=== PATIENT | female | born 1940 | race Caucasian/White ===

== ENCOUNTER → 2016-09-29 | Outpatient (CLI) | payer MEDICARE, OTHER | END | disposition home or self-care (01) | LOC: GMAB 10:20 | PROVIDERS: ATTEND Family Medicine | DX: D51.3 Other dietary vitamin B12 deficiency anemia (principal); I10 Essential (primary) hypertension; D64.9 Anemia, unspecified ==

== ENCOUNTER → 2016-10-02 | Outpatient (CLI) | payer MEDICARE, OTHER ==
--- NOTE | 2016-10-03 14:27 | MRI ---
Procedure: MR BRAIN WITHOUT IV CONTRAST Exam Date: 10/02/2016 Ordering Provider: SAMEER MARQUEZ Clinical Indication: DEMENTIA Comparison: None Technique: Multiplanar MRI of the brain was obtained without the administration of IV contrast. Findings: Mild cerebral and cerebellar volume loss There is no midline shift or hydrocephalus. There is normal signal within the cortical guevara matter, subcortical white matter, and periventricular white matter. There is normal signal within the deep guevara matter nuclei. There is normal signal in the cerebellum. There is normal signal within the brainstem. There is no evidence of an acute infarct. There is no parenchymal hemorrhage. The pituitary gland is normal in size. There are no pineal masses. There are normal intracranial vascular flow voids. The craniocervical junction is unremarkable. Mucosal thickening in the right maxillary sinus. Paranasal sinuses are otherwise unremarkable The orbits are intact. IMPRESSION: 1. No acute intracranial abnormality demonstrated. 2. Mild cerebral and cerebellar volume loss. Electronically signed by: Jorge Moura MD 10/03/2016 2:26 PM CDT
== END | disposition home or self-care (01) ==
LOC: MRI 12:52
PROVIDERS: ATTEND Family Medicine
DX: F03.90 Unspecified dementia, unspecified severity, without behavioral disturbance, psychotic disturbance, mood disturbance, and anxiety (principal); D64.9 Anemia, unspecified

== ENCOUNTER → 2016-11-26 | Outpatient (CLI) | payer MEDICARE, OTHER ==
--- NOTE | 2016-11-30 13:49 | MAM ---
EXAM DESCRIPTION: 3D Screening BILATERAL CLINICAL HISTORY: 76 years, Female, Screening mammogram COMPARISON: None TECHNIQUE: CC and MLO digital mammograms with 3-D tomosynthesis. No CAD utilized. FINDINGS: There are scattered fibroglandular densities. There is no dominant mass nor any suspicious microcalcifications. Benign microcalcifications are present. IMPRESSION: BIRAD CATEGORY: 2 BENIGN FOLLOW-UP: Routine mammography screening. Electronically signed by: Americo Thibodeaux MD 11/30/2016 1:48 PM CDT
== END ==
LOC: MAMMO 10:00
PROVIDERS: ATTEND Family Medicine
DX: Z12.31 Encounter for screening mammogram for malignant neoplasm of breast (principal)
CPT/HCPCS: 77063; G0202

== ENCOUNTER → 2016-12-08 | Outpatient (CLI) | payer MEDICARE, OTHER ==
--- NOTE | 2016-12-08 18:48 | US ---
EXAM DESCRIPTION: Carotid Duplex CLINICAL HISTORY: CAROTID ARTERY STENOSIS COMPARISON: None Available. TECHNIQUE: Carotid Doppler ultrasound FINDINGS: Atherosclerotic plaque is observed in both carotid arteries. No acceleration flow is observed to suggest a significant stenosis. Antegrade flow seen in both vertebral arteries. IMPRESSION: No hemodynamically significant stenosis is identified. Electronically signed by: Cullen Mason MD 12/08/2016 6:46 PM CDT
--- NOTE | 2016-12-09 08:41 | US ---
THYROID ULTRASOUND Clinical information: History of thyroid nodules Patient risk factors: Prior thyroid ultrasound: December 20, 2013 Prior biopsy: No FINDINGS Size right lobe: 4.3 cm craniocaudal, 1.3 cm transverse, 2.3 cm anterior-posterior Size left lobe: 4.7 cm craniocaudal, 1.1 cm transverse, 1.1 cm anterior-posterior Size isthmus: 0.2 cm anterior-posterior. Texture: Estimated total number of nodules greater than or equal to 1 cm: 2 Number of spongiform nodules greater than or equal to 2 cm not described below (TR1): 0 Number of mixed cystic nodules greater than or equal to 1.5 cm not described below (TR2): 0 Nodule 1: Size: 1.2 x 0.7 x 0.9 cm Location: right mid Composition: solid/almost completely solid (2) Echogenicity: isoechoic (1) Shape: not [id number] (0) Margins: smooth (0) Echogenic foci: none (0) ACR TI-RADS total points: 3. ACR TI-RADS risk category: TR3 Follow-up details: Prior biopsy: No Significant growth: None Change in features: None Change in ACR TI-RADS risk category: None Nodule 2: Size: 1.3 x 1.4 x 1.0 cm Location: right lower Composition: mixed cystic and solid (1) Echogenicity: hypoechoic (2) Shape: not [id number] (0) Margins: smooth (0) Echogenic foci: none (0) ACR TI-RADS total points: 3. ACR TI-RADS risk category: TR3 Follow-up details: Prior biopsy: None Significant growth: None Change in features: None Change in ACR TI-RADS risk category: None Smaller less than 1 cm thyroid nodules are seen in the right and left lobes overall unchanged in size and imaging characteristics compared to previous exam. IMPRESSION: Nodule 1: ACR TI-RADS 2017 3. Recommend: No further follow-up Nodule 2: ACR TI-RADS 2017 3. Recommend: No further follow-up Overall ultrasound of the thyroid is unchanged from previous exam. ACR TI-RADS recommendations: TR5 (greater than or equal to 7 points) - FNA if greater than or equal to 1 cm, follow-up if 0.5 - 0.9 cm every year for 5 years TR4 (4-6 points) - FNA if greater than or equal to 1.5 cm, follow-up if 1 - 1.4 cm in 1, 2, 3 and 5 years TR3 (3 points) - FNA if greater than or equal to 2.5 cm, follow -up if 1.5 - 2.4 cm in 1, 3 and 5 years TR2 (2 points) and TR1 (0 points) - No FNA or follow-up * ACR TI-RADS recommends that no more than two nodules with the highest ACR TI-RADS total point should be biopsied and no more than four nodules should be followed. . Electronically signed by: Kota Louis MD 12/09/2016 8:40 AM CDT
== END | disposition home or self-care (01) ==
LOC: US 09:09
PROVIDERS: ATTEND Family Medicine
DX: I65.23 Occlusion and stenosis of bilateral carotid arteries (principal); E04.1 Nontoxic single thyroid nodule

== ENCOUNTER → 2017-04-01 | Outpatient (CLI) | payer MEDICARE, OTHER ==
--- NOTE | 2017-04-02 16:00 | MRI ---
EXAM DESCRIPTION: Cervical Spine w/wo Contrast CLINICAL HISTORY: 76 years,Female,ABN PET SCAN I have no PET scan and I have no report so therefore I do not know what we are looking for on this study. COMPARISON: None TECHNIQUE: MRI performed multiple sequences of the cervical spine with and without gadolinium contrast. FINDINGS: The signal in the cervical vertebral bodies demonstrates no acute findings No enhancing lesions. The cervical cord is normal signal and morphology. No enhancing lesions. Surrounding soft tissues Dense and arch of C1: Moderate hypertrophy and small past formation but no stenosis C2-3: Disc heights mild loss. There is no disc bulge. Facets are moderate bilateral hypertrophy. No spinal canal stenosis. No neural foraminal stenosis. C3-4: Disc heights mild to moderate loss. There is mild broad-based disc ossify complex. Facets are moderate bilateral facet hypertrophy. No spinal canal stenosis. Moderate to severe left and mild right neural foraminal stenosis. C4-5: Disc heights mild loss. There is mild broad-based disc ossify complex. Facets are moderate to severe hypertrophy bilaterally. No spinal canal stenosis. Moderate left mild right neural foraminal stenosis. C5-6: Disc heights mild loss. There is mild broad-based disc ossify complex. Facets are markedly severely left and moderate right facet hypertrophy. No spinal canal stenosis. Moderate to severe left mild right neural foraminal stenosis. C6-7: Disc heights moderate loss . There is mild to moderate broad-based disc ossify complex. Facets are moderate bilateral hypertrophy. No spinal canal stenosis. Mild bilateral neural foraminal stenosis to moderate. No enhancing lesions IMPRESSION: Cervical spine demonstrates moderate to severe facet arthropathy throughout. And mostly mild to moderate disc ossify complexes. This results in some scoliotic changes apex to the right. No significant spinal canal stenosis but multiple levels of neural from stenosis as described above Electronically signed by: Cullen Mayfield MD 04/02/2017 3:59 PM [facility]
== END ==
LOC: MRI 13:33
PROVIDERS: ATTEND Internal Medicine
DX: R93.8 Abnormal findings on diagnostic imaging of other specified body structures (principal); M12.88 Other specific arthropathies, not elsewhere classified, other specified site

== ENCOUNTER → 2017-10-29 | Outpatient (CLI) | payer MEDICARE, OTHER | LOC: GMAE 10:48 | PROVIDERS: ATTEND Family Medicine | DX: E53.8 Deficiency of other specified B group vitamins (principal); D50.9 Iron deficiency anemia, unspecified; I10 Essential (primary) hypertension; I35.8 Other nonrheumatic aortic valve disorders ==

== ENCOUNTER → 2018-11-08 | Outpatient (CLI) | payer MEDICARE, OTHER | LOC: GMAE 10:43 | PROVIDERS: ATTEND Family Medicine | DX: E04.1 Nontoxic single thyroid nodule (principal); I10 Essential (primary) hypertension; I35.8 Other nonrheumatic aortic valve disorders; E78.2 Mixed hyperlipidemia ==

== ENCOUNTER → 2019-03-22 | Outpatient (CLI) | payer MEDICARE, OTHER ==
--- NOTE | 2019-03-23 08:14 | MRI ---
EXAM DESCRIPTION: Lower Extremity w/wo Contrast CLINICAL HISTORY: 78 years, Female, OSTEOMYLITIS COMPARISON: Radiographs 03/02/2019. TECHNIQUE: MRI of the left foot was performed with multiplanar multi sequence imaging without intravenous contrast. 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 Infiltrative T1 hypointense/T2 hyperintense, enhancing signal within the second metatarsal head and neck with increased STIR signal/enhancement within the marrow cavity extending to the proximal diaphysis consistent with osteomyelitis. Subcentimeter cystic structure at the metatarsal head suspicious for a small 4 mm intraosseous abscess (series 301 image 19, versus subcortical cystic changes). The remaining foot bone marrow signal is intact. Severe great toe MTP osteoarthrosis with joint space narrowing, subcortical cystic changes and and bulky osteophyte formation. Osteoarthrosis of the tibiotalar joint and subtalar joints. Subcortical cystic changes within the anterior calcaneus. No fracture. Soft tissues: Anterior soft tissue ulceration underlies the second metatarsal head. There is associated fluid/phlegmon surrounding the metatarsal head and neck. The visualized Lisfranc ligament complex is intact. No significant tenosynovitis. IMPRESSION: 1. 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 2. Left second metatarsal bone osteomyelitis with small fluid and phlegmon surrounding the metatarsal head/neck and small intracortical abscess at the metatarsal head. Electronically signed by: Piero Narayan DO 03/23/2019 8:13 AM [employer]
== END ==
LOC: MRI 09:19
PROVIDERS: ATTEND Family Medicine
DX: M86.279 Subacute osteomyelitis, unspecified ankle and foot (principal); M86.172 Other acute osteomyelitis, left ankle and foot; Z89.422 Acquired absence of other left toe(s)

== ENCOUNTER → 2020-01-24 | Outpatient (CLI) | payer MEDICARE, OTHER | LOC: GMAE 11:18 | PROVIDERS: ATTEND Family Medicine | DX: E53.8 Deficiency of other specified B group vitamins (principal); Z79.891 Long term (current) use of opiate analgesic ==

== ENCOUNTER 2020-03-09 10:47 | Inpatient (IN) | payer MEDICARE, OTHER ==
--- NOTE | 2020-03-09 11:09 | ED.PDOC ---
History of Present Illness - General Time Seen by Provider: 03/09/20 10:50 Source: patient, RN notes reviewed, Vital Signs reviewed Exam Limitations: no limitations - History of Present Illness Initial Comments: 79 yo F hx of thn comes in with 3 days of shortness of breath, generalized malaise. Went to urgent care to get covid testing, was sent here for borderline oxygen saturation. no chest pain, no cardiac or lung history. Allergies/Adverse Reactions: Allergies Sulfa Antibiotics Allergy (Verified 03/09/20 11:15) Home Medications: Ambulatory Orders Amitriptyline HCl [Elavil] 75 mg PO DAILY 02/10/14 Aspirin [Baby Aspirin] 81 mg PO QD 02/10/14 Febuxostat [Uloric] 40 mg PO DAILY 02/10/14 Furosemide 40 mg PO DAILY 02/10/14 Hydroxychloroquine [Plaquenil] 200 mg PO BID 02/10/14 Losartan Potassium & Hydrochlo [Losartan Potassium/Hydroc 50-12.5 mg] 1 tab PO DAILY 02/10/14 Metoprolol Tartrate 25 mg PO BID 02/10/14 Omeprazole 20 mg PO DAILY 02/10/14 Potassium Chloride [Potassium Chloride ER] 10 meq PO BID 02/10/14 Pramipexole Dihydrochloride [Mirapex] 0.25 mg PO BEDTIME 02/10/14 amLODIPine BESYLATE [Norvasc] 5 mg PO DAILY 02/10/14 Review of Systems - Review of Systems Constitutional: States: malaise. Denies: chills, fever EENTM: Denies: blurred vision, throat pain, mouth pain Respiratory: States: short of breath. Denies: cough, stridor Cardiology: Denies: chest pain, palpitations, syncope Gastrointestinal/Abdominal: States: diarrhea. Denies: abdominal pain, nausea, vomiting Genitourinary: Denies: frequency, hematuria Musculoskeletal: Denies: back pain, muscle pain Skin: Denies: rash Neurological: Denies: headache, numbness, paresthesia, pre-existing deficit Endocrine: Denies: unexplained weight gain, unexplained weight loss Hematologic/Lymphatic: Denies: easy bleeding, easy bruising Past Medical History (General) - Patient Medical History Hx Seizures: No Hx Stroke: No Hx Dementia: No Hx Asthma: No Hx of COPD: No Hx Cardiac Disorders: No Hx Congestive Heart Failure: No Hx Pacemaker: No Hx Hypertension: Yes Hx Diabetes: No Hx Gastroesophageal Reflux: No Hx Renal Disease: No Hx Cancer: No Hx of HIV: No Hx Hepatitis B: No Hx Hepatitis C: No Hx MRSA: No Family Medical History - Family History Mother Family History: Unknown Living Status: Unknown Physical Exam - Physical Exam General Appearance: Alert, Comfortable, No apparent distress, Well Developed, Well Groomed, Well Hydrated, Well Nourished Eye Exam: bilateral normal Ears, Nose, Throat: hearing grossly normal, normal ENT inspection Neck: non-tender, full range of motion, supple, normal inspection Respiratory: chest non-tender, lungs clear, normal breath sounds, no respiratory distress, no accessory muscle use Cardiovascular/Chest: normal peripheral pulses, regular rate, rhythm, no edema, no gallop, no JVD, no murmur Peripheral Pulses: radial,right: 2+, radial,left: 2+ Gastrointestinal/Abdominal: normal bowel sounds, non tender, soft, no organomegaly, no pulsatile mass Rectal Exam: deferred Back Exam: normal inspection, no CVA tenderness, no vertebral tenderness Extremity: normal range of motion, non-tender, normal inspection, no pedal edema, no calf tenderness, normal capillary refill 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 Will place on 2 L NC, remdisivir, decadron. also positive. The data reviewed when caring for this patient included: nurse notes, prior records, etc. The history and assessments from nurses notes were reviewed and considered, and the patient's home medication list was also reviewed and considered. My assessment and the results of testing completed here in the ED were discussed with the patient/family. All questions were answered, and they express understanding of my assessment and the plan. Chasity Fernando DO #[id number] 03/09/20 16:32 - Results/Orders Results/Orders: 03/09/20 11:15 Pulse Ox, Continuous Monitoring STAT 03/09/20 12:02 EKG .ONCE 03/09/20 14:42 ED Intent to Admit Routine 03/09/20 15:00 BLOOD CULTURE Stat 03/10/20 11:15 Pulse Ox, Continuous Monitoring STAT 03/11/20 11:15 Pulse Ox, Continuous Monitoring STAT Laboratory Results WBC 5.3 K/mm3 (4.8-10.8) 03/09/20 11:00 RBC 3.65 M/mm3 (4.20-5.40) L 03/09/20 11:00 Hgb 11.5 gm/dL (12.0-16.0) L 03/09/20 11:00 Hct 33.8 % (36.0-47.0) L 03/09/20 11:00 MCV 92.5 fl (81.0-99.0) 03/09/20 11:00 MCH 31.5 pg (27.0-31.0) H 03/09/20 11:00 MCHC 34.1 g/dL (33.0-37.0) 03/09/20 11:00 RDW 14.1 % (11.5-14.5) 03/09/20 11:00 Plt Count 195 K/mm3 (130-400) 03/09/20 11:00 MPV 8.4 fl (7.40-10.4) 03/09/20 11:00 Absolute Neuts (auto) 4.60 K/uL (1.8-6.8) 03/09/20 11:00 Absolute Lymphs (auto) 0.40 K/uL (1.0-3.4) L 03/09/20 11:00 Absolute Monos (auto) 0.30 K/uL (0.2-0.8) 03/09/20 11:00 Absolute Eos (auto) 0.00 K/uL (0.0-0.4) 03/09/20 11:00 Absolute Basos (auto) 0.00 K/uL (0.0-0.1) 03/09/20 11:00 Neutrophils % 86.1 % (42.0-78.0) H 03/09/20 11:00 Lymphocytes % 7.8 % (20.0-50.0) L 03/09/20 11:00 Monocytes % 5.9 % (2.0-9.0) 03/09/20 11:00 Eosinophils % 0.0 % (1.0-5.0) L 03/09/20 11:00 Basophils % 0.2 % (0.0-2.0) 03/09/20 11:00 PTT (SP) 28.8 SECONDS (21.8-31.6) 03/09/20 11:00 D-Dimer, Quantitative 1470.0 ng/ml (131-400) H* 03/09/20 11:00 Sodium 140 mmol/L (135-145) 03/09/20 11:00 Potassium 3.5 mmol/L (3.6-5.0) L 03/09/20 11:00 Chloride 103 mmol/L (101-111) 03/09/20 11:00 Carbon Dioxide 25 mmol/L (21-31) 03/09/20 11:00 Anion Gap 15.5 (12-18) 03/09/20 11:00 BUN 19 mg/dL (7-18) H 03/09/20 11:00 Creatinine 1.34 mg/dL (0.6-1.3) H 03/09/20 11:00 BUN/Creatinine Ratio 14.2 (10-20) 03/09/20 11:00 Random Glucose 130 mg/dL (70-105) H 03/09/20 11:00 Serum Osmolality 283.4 mOsm/L (275-295) 03/09/20 11:00 Calcium 8.7 mg/dL (8.4-10.2) 03/09/20 11:00 Magnesium 1.8 mg/dL (1.8-2.5) 03/09/20 11:00 Total Bilirubin 0.5 mg/dL (0.2-1.0) 03/09/20 11:00 AST 37 IU/L (10-42) 03/09/20 11:00 ALT 18 IU/L (10-60) 03/09/20 11:00 Alkaline Phosphatase 67 IU/L (42-121) 03/09/20 11:00 LD Total 281 IU/L (91-180) H 03/09/20 11:00 Creatine Kinase 87 IU/L (26-140) 03/09/20 11:00 Troponin I 0.05 ng/mL (0.01-0.05) 03/09/20 14:22 C-Reactive Protein 13.4 mg/dL (0-1.0) H* 03/09/20 11:00 B-Natriuretic Peptide 270.0 pg/ml (0-100) H* 03/09/20 11:00 Serum Total Protein 6.6 gm/dL (6.4-8.2) 03/09/20 11:00 Albumin 3.2 g/dl (3.2-5.5) 03/09/20 11:00 Globulin 3.4 gm/dL (2.3-3.5) 03/09/20 11:00 Albumin/Globulin Ratio 0.9 (1.1-1.9) L 03/09/20 11:00 - EKG/XRAY/CT EKG: Sinus Comments: incomplete RBBB, QRS 100, no acute ischemia noted.hr 69 XRAY: chest - bilateral hazy opacities. Departure - Departure Clinical Impression: COVID-19, Hypoxia Time of Disposition: 16:33 Disposition: Admit Patient Home Medications: Ambulatory Orders Amitriptyline HCl [Elavil] 75 mg PO DAILY 02/10/14 Aspirin [Baby Aspirin] 81 mg PO QD 02/10/14 Febuxostat [Uloric] 40 mg PO DAILY 02/10/14 Furosemide 40 mg PO DAILY 02/10/14 Hydroxychloroquine [Plaquenil] 200 mg PO BID 02/10/14 Losartan Potassium & Hydrochlo [Losartan Potassium/Hydroc 50-12.5 mg] 1 tab PO DAILY 02/10/14 Metoprolol Tartrate 25 mg PO BID 02/10/14 Omeprazole 20 mg PO DAILY 02/10/14 Potassium Chloride [Potassium Chloride ER] 10 meq PO BID 02/10/14 Pramipexole Dihydrochloride [Mirapex] 0.25 mg PO BEDTIME 02/10/14 amLODIPine BESYLATE [Norvasc] 5 mg PO DAILY 02/10/14 Decision To Admit - Decistion To Admit Decision to Admit Reason: Medical Nature Decision to Admit Date: 03/09/20 Decision to Admit Time: 13:23
--- NOTE | 2020-03-09 11:44 | RAD ---
EXAM: Chest,1 View INDICATION: 79 years Female, poss covid COMPARISON: 2 views of the chest 03/31/2019 FINDINGS: Single view of the chest was performed. Heart size is within normal limits. Prominence of the central bronchovascular structures. Questionable hazy opacities in the left lung base and in the right perihilar lung. No sizable pleural effusion. No pneumothorax. Surgical clips noted in the right axillary region. Degenerative changes in the spine and shoulders. No acute displaced fracture is identified.. Unremarkable appearance of the visualized upper abdomen. IMPRESSION: Subtle hazy opacities in the left lung base and right perihilar lung. Imaging features can be seen with COVID-19 pneumonia, though are nonspecific and can occur with a variety of infectious and noninfectious processes. [PneInd] Electronically signed by: Essie Bustamante MD 03/09/2020 11:43 AM [facility]
[2020-03-09] MEDS ORDERED: SODIUM CHLORIDE 0.9% 500ML 500 ML IVS ONE (12:53)
[2020-03-09] MEDS ORDERED: DEXAMETHASONE INJ 10 MG/ML VIAL IV ONE (12:55)
[2020-03-09] MEDS ORDERED: SODIUM CHLORIDE 0.9% 500ML 500 ML ONE (13:27)
[2020-03-09] MEDS ORDERED: DEXAMETHASONE INJ 10 MG/ML VIAL ONE (13:27)
[2020-03-09] MEDS ORDERED: REMDESIVIR 200 MG in SODIUM CHLORIDE 0.9% 250ML 250 ML IVPB ONE (14:31)
[2020-03-09] MEDS ORDERED: cefTRIAXone SODIUM 1 GM in SODIUM CHL 0.9% 50ML MIN-BAG+ 50 ML IVPB ONE (14:32)
--- NOTE | 2020-03-09 16:29 | HP ---
SUPERVISING PHYSICIAN: Tj Ho MD CHIEF COMPLAINT: General malaise. HISTORY OF PRESENT ILLNESS: This is a 79-year-old female who states she has been feeling pretty bad for about a week. She progressively felt worse over the last week and went to the clinic to get tested. She was actually positive for COVID as well as having low O2 saturations. She was sent to the Emergency Room for that reason. In the ER, she was found to have O2 saturations in the mid- 90s, but she would drop down into the 80s with exertion, so she was placed on 2 liters via nasal cannula. She had a temperature of 99.8 in the Emergency Room as well. So far, blood pressure has been acceptable. Labs were done and she had a normal white count of 5.3, hemoglobin 11.5, hematocrit 33.8, platelet count 195. D-dimer elevated at 1470. Chemistry showed slightly low potassium at 3.5, BUN 19, creatinine 1.34. Calcium 8.7, CRP 13.4. Troponin was elevated a little bit at 0.06 and then improved to 0.05. No complaints of chest pain. Chest x-ray was done and showed bilateral patchy infiltrates consistent with COVID-19. Due to hypoxia, the patient was referred for admission. At time of examination, the patient is alert, no complaints of nausea or vomiting, still a little bit of shortness of breath. PAST MEDICAL HISTORY: 1. Hypertension. 2. Rheumatoid arthritis. 3. Chronic back pain. MEDICATIONS: Please see med rec list once verified in the computer. ALLERGIES: SULFA DRUGS. FAMILY HISTORY: She denies any significant family history. SOCIAL HISTORY: Nondrinker, nonsmoker, no illicit drugs. REVIEW OF SYSTEMS: CONSTITUTIONAL: Positive for fever, chills and malaise. HEENT: No headaches, vision changes, ear pain, nasal congestion or throat pain. RESPIRATORY: Positive for shortness of breath. No significant cough, hemoptysis or pleuritic chest pain. CARDIOVASCULAR: No chest pain, palpitations or peripheral edema. GASTROINTESTINAL: No nausea, vomiting, diarrhea, constipation or abdominal pain. GENITOURINARY: No dysuria, frequency or flank pain. ENDOCRINE: No polydipsia, polyuria or polyphagia. No heat or cold intolerance. MUSCULOSKELETAL: No joint pain, joint swelling or muscle cramps. NEUROLOGIC: No syncope, paresthesias or seizures. PHYSICAL EXAMINATION: VITAL SIGNS: Blood pressure 157/73, pulse 74, respiratory rate 20, temperature 98.0, oxygen saturation 97% on 2 liters via nasal cannula. GENERAL: Ms. Warner is a 79-year-old female who is in no active distress. NEUROLOGIC: The patient is alert. LUNGS: Diminished, but otherwise clear to auscultation bilaterally. CARDIOVASCULAR: Regular rate and rhythm. Normal S1, S2. ABDOMEN: Soft. Positive bowel sounds. EXTREMITIES: Lower extremities with no edema. LABORATORY: Labs and films are as discussed in history of present illness. IMPRESSION: 1. COVID-19 pneumonitis. 2. Hypertension. 3. Acute kidney injury. 4. History of rheumatoid arthritis. PLAN: At this time, the patient will be admitted to the Medical/Surgical Unit and placed on Remdesivir, dexamethasone, azithromycin and Rocephin. I have placed an order for bronchodilators via inhaler q.i.d. as well as Mucinex. Bronchial hygiene will be started. I will resume her home medications once verified in the computer. Given her elevated D-dimer, I am going to start her on some anticoagulation with Eliquis. We will recheck serial labs and x-rays as indicated. #[id number]
[2020-03-09] MEDS ORDERED: ACETAMINOPHEN IV 1000MG 1,000 MG in PREMIX BOTTLE 1 BOTTLE IVPB ONE (16:33)
[2020-03-09] MEDS ORDERED: SODIUM CHLORIDE 0.9% (FLUSH) 10 ML SYG IV PRN (18:07)
[2020-03-09] MEDS ORDERED: AZITHROMYCIN IV 500 MG VIAL IVPB ONE (19:50)
[2020-03-09] MEDS ORDERED: SODIUM CHLORIDE 0.9% 250ML 250 ML ONE (19:50)
[2020-03-09] MEDS ORDERED: APIXABAN 5 MG TAB PO ONE (19:50)
[2020-03-09] MEDS: AZITHROMYCIN IV 500 MG in SODIUM CHLORIDE 0.9% 250ML 250 ML IVPB SCH (20:09)
[2020-03-09] MEDS: APIXABAN 5 MG TAB PO SCH (20:10)
[2020-03-09] MEDS: guaiFENesin ER TAB 600 MG TAB PO SCH (20:10)
[2020-03-09] MEDS: IV SET AND CAP CHANGE INJ INJ SCH (20:10)
[2020-03-09] MEDS ORDERED: POTASSIUM CHLORIDE 10 MEQ TAB PO ONE (20:50)
[2020-03-09] MEDS: PRAMIPEXOLE 0.25 MG TAB PO SCH (20:51)
[2020-03-09] MEDS: METOPROLOL TARTRATE 50 MG TAB PO SCH (20:51)
[2020-03-09] MEDS: ALBUTEROL INHALER 64 PUFF/8GM INH SCH (20:51)
[2020-03-09] MEDS: NON-FORMULARY MEDICATION 1 EA MIS (Hydroxychloroquine [Plaquenil] 200 MG) PO SCH (20:52)
[2020-03-09] MEDS: NON-FORMULARY MEDICATION 1 EA MIS (Potassium Chloride [Potassium Chloride Er] 10 MEQ) PO SCH (20:52)
--- NOTE | 2020-03-10 07:25 | RAD ---
EXAM: XR Chest, 1 View CLINICAL HISTORY: The patient is 79 years old and is Female; covid-19 TECHNIQUE: Frontal view of the chest. COMPARISON: Chest x-ray 03/09/2020. FINDINGS: Lungs: Diffuse hazy opacities bilaterally. Pleural space: Unremarkable. No pneumothorax. Heart: Unremarkable. No cardiomegaly. Mediastinum: Unremarkable. Bones/joints: Unremarkable. Soft tissues: Surgical clips noted in the right axillary region. IMPRESSION: Diffuse bilateral airspace disease. Electronically signed by: Reed Delatorre MD 03/10/2020 7:24 AM [facility]
[2020-03-10] MEDS: ALBUTEROL INHALER 64 PUFF/8GM INH SCH ×4 (08:15→21:22)
[2020-03-10] MEDS ORDERED: DEXAMETHASONE INJ 10 MG/ML VIAL ONE (08:27)
[2020-03-10] MEDS ORDERED: APIXABAN 5 MG TAB PO ONE ×2 (08:28→19:58)
[2020-03-10] MEDS ORDERED: AMITRIPTYLINE HCL 25 MG TAB ONE (08:28)
[2020-03-10] MEDS ORDERED: METOPROLOL TARTRATE 25 MG TAB ONE ×2 (08:28→19:58)
[2020-03-10] MEDS ORDERED: POTASSIUM CHLORIDE 10 MEQ TAB PO ONE (08:29)
[2020-03-10] MEDS ORDERED: SODIUM CHLORIDE 0.9% 250ML 250 ML ONE ×2 (08:29→18:52)
[2020-03-10] MEDS ORDERED: REMDESIVIR IV 100 MG VIAL ONE (08:29)
[2020-03-10] MEDS: REMDESIVIR 100 MG in SODIUM CHLORIDE 0.9% 250ML 250 ML IVPB SCH (09:00)
[2020-03-10] MEDS: NON-FORMULARY MEDICATION 1 EA MIS (Potassium Chloride [Potassium Chloride Er] 10 MEQ) PO SCH ×2 (09:24→20:40)
[2020-03-10] MEDS: guaiFENesin ER TAB 600 MG TAB PO SCH ×2 (09:25→20:37)
[2020-03-10] MEDS: OMEPRAZOLE CAP 20 MG CAP PO SCH (09:26)
[2020-03-10] MEDS: amLODIPine BESYLATE 5 MG TAB PO SCH (09:27)
[2020-03-10] MEDS: APIXABAN 5 MG TAB PO SCH ×2 (09:27→20:37)
[2020-03-10] MEDS: METOPROLOL TARTRATE 50 MG TAB PO SCH ×2 (09:29→20:39)
[2020-03-10] MEDS: AMITRIPTYLINE HCL 75 MG PO SCH (09:29)
[2020-03-10] MEDS: DEXAMETHASONE INJ 4 MG/ML VIAL IV SCH (09:30)
--- NOTE | 2020-03-10 12:41 | PN ---
SUPERVISING PHYSICIAN: DATE: 03/10/20 SUBJECTIVE: The patient feels okay today with no significant shortness of breath. She does have an occasional cough but nothing out of the ordinary for the last few days. No complaints of nausea or vomiting. OBJECTIVE: VITAL SIGNS: Blood pressure 145.72, heart rate 69, respiratory 18, temperature 97.7, oxygen saturation 95% on 2 liters via nasal cannula. GENERAL: The patient is a 79 year-old female in no active distress. NEUROLOGIC: The patient is alert. LUNGS: Diminished primarily in the bases, no active rales or wheezing are appreciate. HEART: Regular rate and rhythm. Normal S1, S2. ABDOMEN: Soft, positive bowel sounds. EXTREMITIES: No edema. 2+ pulses, capillary refill less than 2 seconds. LABORATORY: White count 2.8, hemoglobin 11.4, hematocrit 33.2, platelet count 201. D-dimer is down to 858 from 1470 yesterday. Chemistry with BUN 23, creatinine 1.13, CRP 13.8 today. Chest x-ray shows diffuse bilateral patchy infiltrates with no significant change from yesterday. IMPRESSION: 1. COVID-19 pneumonitis. 2. Hypertension. 3. Acute kidney injury, improved. 4. History of rheumatoid arthritis. PLAN: Will continue the Remdesivir, dexamethasone, azithromycin, Rocephin. Additionally, she is on albuterol inhalers for scheduled bronchodilator therapy as well as Mucinex. Bronchial hygiene has been ordered as well. Will continue Eliquis at this time. Recheck serial labs tomorrow and x-rays will be checked as needed. #[id number] [facility]
[2020-03-10] MEDS: NON-FORMULARY MEDICATION 1 EA MIS (Hydroxychloroquine [Plaquenil] 200 MG) PO SCH ×2 (12:54→20:40)
[2020-03-10] MEDS: NON-FORMULARY MEDICATION 1 EA MIS (Febuxostat [Uloric] 40 MG) PO SCH (12:54)
[2020-03-10] MEDS: NON-FORMULARY MEDICATION 1 EA MIS (Losartan Potassium & Hydrochlo [Losartan Potassium/Hydr PO SCH (13:50)
[2020-03-10] MEDS ORDERED: cefTRIAXone SODIUM 1 GM VIAL ONE (17:14)
[2020-03-10] MEDS ORDERED: SODIUM CHL 0.9% 50ML MIN-BAG+ 50 ML IVPB ONE (17:15)
[2020-03-10] MEDS: cefTRIAXone SODIUM 1 GM in SODIUM CHL 0.9% 50ML MIN-BAG+ 50 ML IVPB SCH (17:17)
[2020-03-10] MEDS ORDERED: AZITHROMYCIN IV 500 MG VIAL IVPB ONE (18:52)
[2020-03-10] MEDS: AZITHROMYCIN IV 500 MG in SODIUM CHLORIDE 0.9% 250ML 250 ML IVPB SCH (18:55)
[2020-03-10] MEDS ORDERED: guaiFENesin ER TAB 600 MG TAB ONE (19:58)
[2020-03-10] MEDS ORDERED: PRAMIPEXOLE 0.25 MG TAB ONE (19:58)
[2020-03-10] MEDS: PRAMIPEXOLE 0.25 MG TAB PO SCH (20:36)
[2020-03-11] MEDS ORDERED: DEXAMETHASONE INJ 10 MG/ML VIAL ONE (08:55)
[2020-03-11] MEDS ORDERED: APIXABAN 5 MG TAB PO ONE ×2 (08:56→19:31)
[2020-03-11] MEDS ORDERED: amLODIPine BESYLATE 5 MG TAB ONE (08:56)
[2020-03-11] MEDS ORDERED: OMEPRAZOLE CAP 20 MG CAP ONE (08:56)
[2020-03-11] MEDS ORDERED: AMITRIPTYLINE HCL 25 MG TAB ONE (08:56)
[2020-03-11] MEDS ORDERED: guaiFENesin ER TAB 600 MG TAB ONE ×2 (08:56→19:30)
[2020-03-11] MEDS ORDERED: POTASSIUM CHLORIDE 10 MEQ TAB PO ONE (08:57)
[2020-03-11] MEDS ORDERED: METOPROLOL TARTRATE 25 MG TAB ONE ×2 (08:57→19:31)
[2020-03-11] MEDS ORDERED: REMDESIVIR IV 100 MG VIAL ONE (08:57)
[2020-03-11] MEDS ORDERED: SODIUM CHLORIDE 0.9% 250ML 0 ML ONE (08:57)
[2020-03-11] MEDS: ALBUTEROL INHALER 64 PUFF/8GM INH SCH ×4 (09:22→20:20)
[2020-03-11] MEDS: NON-FORMULARY MEDICATION 1 EA MIS (Hydroxychloroquine [Plaquenil] 200 MG) PO SCH ×2 (09:47→20:50)
[2020-03-11] MEDS: REMDESIVIR 100 MG in SODIUM CHLORIDE 0.9% 250ML 250 ML IVPB SCH (09:50)
[2020-03-11] MEDS: OMEPRAZOLE CAP 20 MG CAP PO SCH (09:51)
[2020-03-11] MEDS: DEXAMETHASONE INJ 4 MG/ML VIAL IV SCH (09:51)
[2020-03-11] MEDS: AMITRIPTYLINE HCL 75 MG PO SCH (09:52)
[2020-03-11] MEDS: guaiFENesin ER TAB 600 MG TAB PO SCH ×2 (09:52→20:49)
[2020-03-11] MEDS: NON-FORMULARY MEDICATION 1 EA MIS (Febuxostat [Uloric] 40 MG) PO SCH (09:52)
[2020-03-11] MEDS: APIXABAN 5 MG TAB PO SCH ×2 (09:52→20:51)
[2020-03-11] MEDS: METOPROLOL TARTRATE 50 MG TAB PO SCH ×2 (09:52→20:52)
[2020-03-11] MEDS: amLODIPine BESYLATE 5 MG TAB PO SCH (09:53)
[2020-03-11] MEDS: NON-FORMULARY MEDICATION 1 EA MIS (Losartan Potassium & Hydrochlo [Losartan Potassium/Hydr PO SCH (09:53)
[2020-03-11] MEDS: NON-FORMULARY MEDICATION 1 EA MIS (Potassium Chloride [Potassium Chloride Er] 10 MEQ) PO SCH ×2 (09:53→21:02)
[2020-03-11] MEDS ORDERED: cefTRIAXone SODIUM 1 GM VIAL ONE (15:16)
[2020-03-11] MEDS ORDERED: SODIUM CHL 0.9% 50ML MIN-BAG+ 0 ML IVPB ONE (15:17)
[2020-03-11] MEDS ORDERED: SODIUM CHLORIDE 0.9% 250ML 250 ML ONE ×2 (15:25→20:57)
[2020-03-11] MEDS ORDERED: AZITHROMYCIN IV 500 MG VIAL IVPB ONE ×2 (15:25→19:31)
--- NOTE | 2020-03-11 16:44 | PN ---
SUPERVISING PHYSICIAN: Tj Ho MD DATE: 03/11/20 SUBJECTIVE: The patient is asleep, laying in bed. She awakens easily. She has some mild shortness of breath with exertion, but otherwise no complaints other than she has difficulty sleeping. OBJECTIVE: VITAL SIGNS: Temperature 98.2, heart rate 58, blood pressure 115/68, respiratory rate 18, O2 saturation 89% on 1 liter nasal cannula. RESPIRATORY: A few scattered rhonchi, but mostly just diminished at the bases. CARDIAC: Regular rate and rhythm. NEUROLOGIC: Awake, alert and oriented times three. LABORATORY: WBCs 7,600, hemoglobin 10.9, hematocrit 32.3. She has a left shift on her differential. D-dimer 628. Sodium slightly high at 146, chloride 112. Remainder of her electrolytes are within normal limits. BUN 31, creatinine 1.13. C-reactive protein 6.1. MICROBIOLOGY: Preliminary blood cultures show no growth after 48 hours. All other labs and films have been reviewed via the EMR. ASSESSMENT: 1. COVID-19 pneumonitis. 2. Hypertension. 3. Acute kidney injury, improved. 4. History of rheumatoid arthritis. PLAN: We will continue present supportive care. She will continue with the COVID guidelines including Remdesivir, azithromycin, dexamethasone and Rocephin. She will continue with aggressive pulmonary hygiene. We will continue to try to wean oxygen as tolerated. I have ordered Restoril to help with sleep at night. We will have lab for tomorrow. #[id number] [facility]
[2020-03-11] MEDS: cefTRIAXone SODIUM 1 GM in SODIUM CHL 0.9% 50ML MIN-BAG+ 50 ML IVPB SCH (16:47)
[2020-03-11] MEDS: AZITHROMYCIN IV 500 MG in SODIUM CHLORIDE 0.9% 250ML 250 ML IVPB SCH (16:48)
[2020-03-11] MEDS ORDERED: PRAMIPEXOLE 0.25 MG TAB ONE (19:31)
[2020-03-11] MEDS ORDERED: SODIUM CHL 0.9% 50ML MIN-BAG+ 50 ML IVPB ONE (19:32)
[2020-03-11] MEDS: PRAMIPEXOLE 0.25 MG TAB PO SCH (20:48)
--- NOTE | 2020-03-12 08:03 | RAD ---
EXAM DESCRIPTION: Chest,1 View CLINICAL HISTORY: 79 years Female, covid-19 COMPARISON: March 10, 2020 TECHNIQUE: X-ray 1 view chest AP portable FINDINGS: Multiple peripheral groundglass opacities on both sides with prominent central perihilar groundglass opacity on the right. No effusion. Heart size normal. IMPRESSION: Findings compatible with covid-19 pneumonia worsening since previous Electronically signed by: Americo Thibodeaux MD 03/12/2020 8:02 AM [facility]
[2020-03-12] MEDS ORDERED: amLODIPine BESYLATE 5 MG TAB ONE (08:34)
[2020-03-12] MEDS ORDERED: DEXAMETHASONE INJ 10 MG/ML VIAL ONE (08:34)
[2020-03-12] MEDS ORDERED: AMITRIPTYLINE HCL 25 MG TAB ONE ×2 (08:34→19:26)
[2020-03-12] MEDS ORDERED: BIFIDOBACTERIUM INFANTIS 4 MG CAP ONE (08:34)
[2020-03-12] MEDS ORDERED: OMEPRAZOLE CAP 20 MG CAP ONE (08:34)
[2020-03-12] MEDS ORDERED: POTASSIUM CHLORIDE 10 MEQ TAB PO ONE (08:35)
[2020-03-12] MEDS ORDERED: METOPROLOL TARTRATE 25 MG TAB ONE (08:35)
[2020-03-12] MEDS ORDERED: LOSARTAN POTASSIUM 25 MG TAB ONE (08:35)
[2020-03-12] MEDS ORDERED: APIXABAN 5 MG TAB PO ONE (08:35)
[2020-03-12] MEDS ORDERED: REMDESIVIR IV 100 MG VIAL ONE (08:36)
[2020-03-12] MEDS ORDERED: AMITRIPTYLINE HCL 25 MG TAB PO SCH (09:00)
[2020-03-12] MEDS: ALBUTEROL INHALER 64 PUFF/8GM INH SCH ×4 (09:20→20:45)
[2020-03-12] MEDS: BIFIDOBACTERIUM INFANTIS 4 MG CAP PO SCH ×2 (10:08→20:19)
[2020-03-12] MEDS: OMEPRAZOLE CAP 20 MG CAP PO SCH (10:08)
[2020-03-12] MEDS: amLODIPine BESYLATE 5 MG TAB PO SCH (10:08)
[2020-03-12] MEDS: REMDESIVIR 100 MG in SODIUM CHLORIDE 0.9% 250ML 250 ML IVPB SCH (10:08)
[2020-03-12] MEDS: DEXAMETHASONE INJ 10 MG/ML VIAL IV SCH (10:08)
[2020-03-12] MEDS: POTASSIUM CHLORIDE 10 MEQ TAB PO SCH ×2 (10:09→20:20)
[2020-03-12] MEDS: LOSARTAN POTASSIUM 25 MG TAB PO SCH (10:09)
[2020-03-12] MEDS: hydroCHLOROthiazide 12.5 MG CAP PO SCH (10:09)
[2020-03-12] MEDS: METOPROLOL TARTRATE 25 MG TAB PO SCH ×2 (10:09→20:20)
[2020-03-12] MEDS: guaiFENesin ER TAB 600 MG TAB PO SCH ×2 (10:10→20:19)
[2020-03-12] MEDS: ASPIRIN (CHEWABLE) 81 MG TAB PO SCH (10:10)
[2020-03-12] MEDS: APIXABAN 5 MG TAB PO SCH ×2 (10:10→20:20)
[2020-03-12] MEDS: NON-FORMULARY MEDICATION 1 EA MIS (Febuxostat [Uloric] 40 MG) PO SCH (10:10)
[2020-03-12] MEDS: NON-FORMULARY MEDICATION 1 EA MIS (Hydroxychloroquine [Plaquenil] 200 MG) PO SCH ×2 (10:10→20:20)
[2020-03-12] MEDS: cefTRIAXone SODIUM 1 GM in SODIUM CHL 0.9% 50ML MIN-BAG+ 50 ML IVPB SCH (15:50)
[2020-03-12] MEDS: AZITHROMYCIN IV 500 MG in SODIUM CHLORIDE 0.9% 250ML 250 ML IVPB SCH (17:59)
--- NOTE | 2020-03-12 18:36 | PN ---
SUPERVISING PHYSICIAN: Hawa Cr MD DATE: 03/12/20 SUBJECTIVE: The patient is sitting up in bed. She complains of some shortness of breath with exertion. We will obtain an ambulatory study. I have explained to her about exertional hypoxia. OBJECTIVE: VITAL SIGNS: Temperature 97.5, heart rate 57, blood pressure 150/80, respiratory rate 18, O2 saturation 92% on 1 liter nasal cannula. RESPIRATORY: Essentially clear to auscultation bilaterally. CARDIAC: Regular rate and rhythm. NEUROLOGIC: Awake, alert and oriented times three. LABORATORY: WBCs 8.2, hemoglobin 11.1, hematocrit 32.8. She has a left shift on her differential. Fibrinogen 450, D-dimer has gone up to 1,060. Electrolytes are basically within normal limits. LD 257, CRP 3. MICROBIOLOGY: Preliminary blood cultures show no growth after 3 days. RADIOLOGY: Chest x-ray shows findings compatible with COVID-19 pneumonia, worsening since previous. All other labs and films have been reviewed via the EMR. ASSESSMENT: 1. COVID-19 pneumonitis. 2. Hypertension. 3. Acute kidney injury, improved. 4. History of rheumatoid arthritis. PLAN: We will continue present supportive care. We will continue monitoring her x-ray and labs. We will continue with the COVID medications and guidelines. I have ordered an ambulation study. I increased her Eliquis to 5 mg daily. We will continue to follow and treat as needed. [facility][id number] [facility]
[2020-03-12] MEDS: AMITRIPTYLINE HCL 25 MG TAB PO SCH (20:19)
[2020-03-12] MEDS: IV SET AND CAP CHANGE INJ INJ SCH (20:20)
[2020-03-12] MEDS: PRAMIPEXOLE 0.25 MG TAB PO SCH (20:20)
[2020-03-13] MEDS: OMEPRAZOLE CAP 20 MG CAP PO SCH (06:08)
[2020-03-13] MEDS: ALBUTEROL INHALER 64 PUFF/8GM INH SCH ×4 (11:10→20:15)
[2020-03-13] MEDS: guaiFENesin ER TAB 600 MG TAB PO SCH ×2 (11:29→20:13)
[2020-03-13] MEDS: POTASSIUM CHLORIDE 10 MEQ TAB PO SCH ×2 (11:29→20:13)
[2020-03-13] MEDS: DEXAMETHASONE INJ 10 MG/ML VIAL IV SCH (11:29)
[2020-03-13] MEDS: amLODIPine BESYLATE 5 MG TAB PO SCH (11:30)
[2020-03-13] MEDS: ASPIRIN (CHEWABLE) 81 MG TAB PO SCH (11:30)
[2020-03-13] MEDS: APIXABAN 5 MG TAB PO SCH ×2 (11:30→20:13)
[2020-03-13] MEDS: hydroCHLOROthiazide 12.5 MG CAP PO SCH (11:30)
[2020-03-13] MEDS: METOPROLOL TARTRATE 25 MG TAB PO SCH ×2 (11:30→20:13)
[2020-03-13] MEDS: LOSARTAN POTASSIUM 25 MG TAB PO SCH (11:30)
[2020-03-13] MEDS: REMDESIVIR 100 MG in SODIUM CHLORIDE 0.9% 250ML 250 ML IVPB SCH (11:31)
[2020-03-13] MEDS: BIFIDOBACTERIUM INFANTIS 4 MG CAP PO SCH ×2 (11:31→20:12)
[2020-03-13] MEDS: NON-FORMULARY MEDICATION 1 EA MIS (Febuxostat [Uloric] 40 MG) PO SCH (11:31)
[2020-03-13] MEDS: NON-FORMULARY MEDICATION 1 EA MIS (Hydroxychloroquine [Plaquenil] 200 MG) PO SCH ×2 (11:32→20:14)
[2020-03-13] MEDS: cefTRIAXone SODIUM 1 GM in SODIUM CHL 0.9% 50ML MIN-BAG+ 50 ML IVPB SCH (16:33)
[2020-03-13] MEDS: AZITHROMYCIN IV 500 MG in SODIUM CHLORIDE 0.9% 250ML 250 ML IVPB SCH (16:33)
--- NOTE | 2020-03-13 16:34 | PN ---
SUPERVISING PHYSICIAN: Hawa Cr MD DATE: 03/13/20 SUBJECTIVE: The patient is lying in bed. She feels very weak and does get short of breath with exertion, but she does feel somewhat better. We discussed her discharge plan and hopefully she can be discharged in the next two days or so. OBJECTIVE: VITAL SIGNS: Temperature 97, heart rate 63, blood pressure 145/82, respiratory rate 16, O2 saturation 90% on 2 liters nasal cannula. RESPIRATORY: Diminished throughout, otherwise clear to auscultation. CARDIAC: Regular rate and rhythm. NEUROLOGIC: Awake, alert and oriented times three. LABORATORY: WBCs 10.4, hemoglobin 11, hematocrit 32.1. She has a left shift on her differential. Fibrinogen 463, D-dimer has gone up slightly to 1,430. Electrolytes are within normal limits. LD 266, CRP 3.9. MICROBIOLOGY: Preliminary blood cultures show no growth after 4 days. All other labs and films have been reviewed via the EMR. ASSESSMENT: 1. COVID-19 pneumonitis. 2. Hypertension. 3. Acute kidney injury, improved. 4. History of rheumatoid arthritis. PLAN: We will continue present supportive care including COVID guidelines with lab and medications. We will continue monitoring her cultures and try to wean her oxygen as tolerated. She will have aggressive pulmonary hygiene. She will have lab and chest x-ray tomorrow. I have also given her some Xanax as she is somewhat anxious and worried about her hospital stay. #[id number] [facility]
[2020-03-13] MEDS: AMITRIPTYLINE HCL 25 MG TAB PO SCH (20:12)
[2020-03-13] MEDS: PRAMIPEXOLE 0.25 MG TAB PO SCH (20:13)
[2020-03-14] MEDS: OMEPRAZOLE CAP 20 MG CAP PO SCH (06:13)
--- NOTE | 2020-03-14 06:34 | RAD ---
EXAM DESCRIPTION: Chest,1 View CLINICAL HISTORY: covid COMPARISON: Chest x-ray 03/12/2020. TECHNIQUE: Single view of the chest. FINDINGS: Lung volumes adequate. Cardiac silhouette is unchanged. No pneumothorax. Unchanged multifocal bilateral airspace disease. Surgical clips overlying the right axillary region. IMPRESSION: Grossly unchanged multifocal bilateral airspace disease. Electronically signed by: Elena Harris MD 03/14/2020 6:33 AM FOOD GENERAL MANAGER
[2020-03-14] MEDS: amLODIPine BESYLATE 5 MG TAB PO SCH (08:37)
[2020-03-14] MEDS: APIXABAN 5 MG TAB PO SCH ×2 (08:37→20:01)
[2020-03-14] MEDS: BIFIDOBACTERIUM INFANTIS 4 MG CAP PO SCH ×2 (08:37→20:01)
[2020-03-14] MEDS: hydroCHLOROthiazide 12.5 MG CAP PO SCH (08:37)
[2020-03-14] MEDS: POTASSIUM CHLORIDE 10 MEQ TAB PO SCH ×2 (08:37→20:01)
[2020-03-14] MEDS: LOSARTAN POTASSIUM 25 MG TAB PO SCH (08:37)
[2020-03-14] MEDS: ASPIRIN (CHEWABLE) 81 MG TAB PO SCH (08:37)
[2020-03-14] MEDS: NON-FORMULARY MEDICATION 1 EA MIS (Febuxostat [Uloric] 40 MG) PO SCH (08:38)
[2020-03-14] MEDS: NON-FORMULARY MEDICATION 1 EA MIS (Hydroxychloroquine [Plaquenil] 200 MG) PO SCH ×2 (08:38→20:01)
[2020-03-14] MEDS: METOPROLOL TARTRATE 25 MG TAB PO SCH ×2 (08:38→20:02)
[2020-03-14] MEDS: DEXAMETHASONE INJ 10 MG/ML VIAL IV SCH (08:38)
[2020-03-14] MEDS: guaiFENesin ER TAB 600 MG TAB PO SCH ×2 (08:38→20:01)
[2020-03-14] MEDS: ALBUTEROL INHALER 64 PUFF/8GM INH SCH ×4 (08:51→20:46)
[2020-03-14] MEDS: cefTRIAXone SODIUM 1 GM in SODIUM CHL 0.9% 50ML MIN-BAG+ 50 ML IVPB SCH (16:18)
[2020-03-14] MEDS: AZITHROMYCIN IV 500 MG in SODIUM CHLORIDE 0.9% 250ML 250 ML IVPB SCH (16:56)
--- NOTE | 2020-03-14 18:29 | PN ---
SUPERVISING PHYSICIAN: Hawa Cr MD DATE: 03/14/20 SUBJECTIVE: The patient says she is doing okay. She is still a little short of breath at times, but is slowly able to titrate her oxygen down. She has had no chest pain, no nausea, vomiting or diarrhea. OBJECTIVE: VITAL SIGNS: Temperature 98.6, blood pressure 132/85, respirations 18, saturation 93% on 2 liters nasal cannula. GENERAL: The patient is resting comfortably in no acute distress. CHEST: Lungs are clear, just a little diminished towards the bases. No obvious rales, rhonchi or wheezing. HEART: Regular rate and rhythm. ABDOMEN: Soft, nontender. Positive bowel sounds. EXTREMITIES: No edema. NEUROLOGIC: Alert and oriented times three. LABORATORY: White count 9,300, hemoglobin 11.4, hematocrit 33.4, platelet count 264,000. Differential without a left shift. Coagulation studies show D-dimer now up to 2090 from initial 628. She is on Eliquis. RADIOLOGY: Chest x-ray this morning per radiologic interpretation of single view chest shows grossly unchanged multifocal bilateral airspace disease. ASSESSMENT: 1. COVID-19 pneumonitis. 2. Hypertension. 3. Acute kidney injury, improved. 4. History of rheumatoid arthritis. PLAN: We will continue current plan with COVID guidelines and follow labs. We will wean her oxygen as tolerated. She does remain on aggressive pulmonary hygiene. If her kidney function continues to show improvement and she does continue to show elevation of D-dimer, may consider possibly doing CT of her chest. Until that point, we will continue Lovenox which she is covered adequately. I do not think she has any history of DVT or higher risk factors. Hopefully, we will be able to transition her to home within the next 48 hours. Until then, we will continue to monitor and treat as needed. [facility][id number] [facility]
[2020-03-14] MEDS: PRAMIPEXOLE 0.25 MG TAB PO SCH (20:01)
[2020-03-14] MEDS: AMITRIPTYLINE HCL 25 MG TAB PO SCH (20:02)
[2020-03-15] MEDS: OMEPRAZOLE CAP 20 MG CAP PO SCH (06:07)
[2020-03-15] MEDS: ALBUTEROL INHALER 64 PUFF/8GM INH SCH ×4 (08:13→21:05)
[2020-03-15] MEDS: hydroCHLOROthiazide 12.5 MG CAP PO SCH (10:09)
[2020-03-15] MEDS: POTASSIUM CHLORIDE 10 MEQ TAB PO SCH ×2 (10:09→20:05)
[2020-03-15] MEDS: BIFIDOBACTERIUM INFANTIS 4 MG CAP PO SCH ×2 (10:09→20:05)
[2020-03-15] MEDS: APIXABAN 5 MG TAB PO SCH ×2 (10:09→20:06)
[2020-03-15] MEDS: LOSARTAN POTASSIUM 25 MG TAB PO SCH (10:09)
[2020-03-15] MEDS: NON-FORMULARY MEDICATION 1 EA MIS (Febuxostat [Uloric] 40 MG) PO SCH (10:10)
[2020-03-15] MEDS: ASPIRIN (CHEWABLE) 81 MG TAB PO SCH (10:10)
[2020-03-15] MEDS: guaiFENesin ER TAB 600 MG TAB PO SCH ×2 (10:10→20:05)
[2020-03-15] MEDS: amLODIPine BESYLATE 5 MG TAB PO SCH (10:10)
[2020-03-15] MEDS: METOPROLOL TARTRATE 25 MG TAB PO SCH ×2 (10:10→20:05)
[2020-03-15] MEDS: DEXAMETHASONE INJ 10 MG/ML VIAL IV SCH (10:10)
[2020-03-15] MEDS: NON-FORMULARY MEDICATION 1 EA MIS (Hydroxychloroquine [Plaquenil] 200 MG) PO SCH ×2 (10:11→20:06)
[2020-03-15] MEDS: cefTRIAXone SODIUM 1 GM in SODIUM CHL 0.9% 50ML MIN-BAG+ 50 ML IVPB SCH (15:40)
--- NOTE | 2020-03-15 15:47 | PN ---
SUPERVISING PHYSICIAN: Hawa Cr MD DATE: 03/15/20 SUBJECTIVE: The patient is still requiring HiFlow oxygen. She is not in distress, not having any chest pain or other complaints, still is being difficult to titrate her oxygen down. OBJECTIVE: VITAL SIGNS: Temperature 97.8, pulse 60, blood pressure 153/72, respirations 24, saturation 95% on 8 liter nasal cannula on HiFlow. GENERAL: The patient is resting comfortably in no acute distress. CHEST: Lungs are clear, just a little diminished towards the bases. No obvious rales, rhonchi or wheezing. HEART: Regular rate and rhythm. ABDOMEN: Soft, nontender. Positive bowel sounds. EXTREMITIES: No edema. NEUROLOGIC: Alert and oriented times three. LABORATORY: White count 12,900, hemoglobin 11.3, hematocrit 33.3, platelet count 284,000. Differential does show a left shift but no bands. Coagulation studies show D-dimer now down to 1490 from 2089 yesterday. Chemistries show normal electrolytes with creatinine 1.14, C-reactive protein 6.4 which is down from 7.3 yesterday. MICROBIOLOGY: Blood cultures remain negative at 5 days. RADIOLOGY: No radiology studies today. ASSESSMENT: 1. COVID-19 pneumonitis. 2. Hypertension. 3. Acute kidney injury, improved. 4. History of rheumatoid arthritis. PLAN: We will continue with aggressive pulmonary hygiene and working to titrate her oxygen down. She does remain on antibiotic coverage with Rocephin, azithromycin as well as Decadron. She is on Eliquis for anticoagulation. We will continue to monitor and treat and work to get her oxygen down. Hopefully if we can get her oxygen down within the next 24-48 hours and her D-dimer continues to show improvement, we can give considerations for going home. Certainly, she will need oxygen on discharge and we will work to assess for needs at that tome. Until then, we will continue to monitor and treat as needed. #[id number] [facility]
[2020-03-15] MEDS: AZITHROMYCIN IV 500 MG in SODIUM CHLORIDE 0.9% 250ML 250 ML IVPB SCH (17:31)
[2020-03-15] MEDS: AMITRIPTYLINE HCL 25 MG TAB PO SCH (20:05)
[2020-03-15] MEDS: PRAMIPEXOLE 0.25 MG TAB PO SCH (20:06)
[2020-03-15] MEDS: IV SET AND CAP CHANGE INJ INJ SCH (20:09)
[2020-03-16] MEDS: ALPRAZolam 0.25 MG TAB PO PRN ×2 (02:31→20:14)
[2020-03-16] MEDS: OMEPRAZOLE CAP 20 MG CAP PO SCH (06:07)
--- NOTE | 2020-03-16 06:15 | RAD ---
EXAM: XR Chest, 1 View CLINICAL HISTORY: covid PNA TECHNIQUE: Frontal view of the chest. COMPARISON: 03/14/2020 FINDINGS: Lungs: Stable bilateral interstitial and airspace consolidation. Pleural space: No pneumothorax or pleural effusion. Heart: Stable cardiac shadow. Mediastinum: No abnormality noted. Bones/joints: No osseous destruction or sclerosis noted. IMPRESSION: Stable abnormalities as above. Electronically signed by: Jennifer Ochoa MD 03/16/2020 6:14 AM LAUNDROMAT MANAGER
[2020-03-16] MEDS: ALBUTEROL INHALER 64 PUFF/8GM INH SCH ×5 (08:55→21:15)
[2020-03-16] MEDS: LOSARTAN POTASSIUM 25 MG TAB PO SCH (09:43)
[2020-03-16] MEDS: ASPIRIN (CHEWABLE) 81 MG TAB PO SCH (09:43)
[2020-03-16] MEDS: BIFIDOBACTERIUM INFANTIS 4 MG CAP PO SCH ×2 (09:43→20:14)
[2020-03-16] MEDS: guaiFENesin ER TAB 600 MG TAB PO SCH ×2 (09:43→20:15)
[2020-03-16] MEDS: hydroCHLOROthiazide 12.5 MG CAP PO SCH (09:43)
[2020-03-16] MEDS: METOPROLOL TARTRATE 25 MG TAB PO SCH ×2 (09:44→20:14)
[2020-03-16] MEDS: amLODIPine BESYLATE 5 MG TAB PO SCH (09:44)
[2020-03-16] MEDS: APIXABAN 5 MG TAB PO SCH ×2 (09:44→20:14)
[2020-03-16] MEDS: DEXAMETHASONE INJ 10 MG/ML VIAL IV SCH (09:44)
[2020-03-16] MEDS: NON-FORMULARY MEDICATION 1 EA MIS (Febuxostat [Uloric] 40 MG) PO SCH (10:00)
[2020-03-16] MEDS: POTASSIUM CHLORIDE 10 MEQ TAB PO SCH ×2 (10:00→20:14)
[2020-03-16] MEDS: NON-FORMULARY MEDICATION 1 EA MIS (Hydroxychloroquine [Plaquenil] 200 MG) PO SCH ×2 (10:00→20:15)
[2020-03-16] MEDS: cefTRIAXone SODIUM 1 GM in SODIUM CHL 0.9% 50ML MIN-BAG+ 50 ML IVPB SCH (17:15)
[2020-03-16] MEDS: fentaNYL PATCH 25 MCG/HR 1 EA PATCH TOP SCH (17:15)
[2020-03-16] MEDS: REMOVE OLD PATCH TOP SCH (17:19)
--- NOTE | 2020-03-16 18:58 | PN ---
SUPERVISING PHYSICIAN: Hawa Cr MD DATE: 03/16/20 SUBJECTIVE: The patient actually looks like he is doing pretty well today. She is sitting on the edge of the bed eating lunch, does not seem to be quite as short of breath. She does desat pretty quickly when she does any activity levels. She has not had any nausea, vomiting or diarrhea or any chest pain. OBJECTIVE: VITAL SIGNS: Temperature 97.6, pulse 62, blood pressure 150/77, respirations 20 to 22, saturation 94% with high flow with exertion. GENERAL: The patient looks to be a little bit short of breath, otherwise not in any distress. . CHEST: Lung sounds are diminished towards the bases. No obvious rhonchi or wheezing noted. HEART: Regular rate and rhythm. ABDOMEN: Soft, nontender. Positive bowel sounds. EXTREMITIES: No edema. NEUROLOGIC: Alert and oriented times three. SKIN: Warm, pink and dry. LABORATORY: White count shows some elevation today, up to 14,200, does have a left shift. Hemoglobin 11.3, hematocrit 33.8, platelet count 219,000. D-dimer again is up to 1780 which is up from 1490 yesterday. Chemistries show normal electrolytes with creatinine 1.03. liver functions within normal limits. C- reactive protein went up today to 8.9. Albumin remains normal at 2.8. MICROBIOLOGY: Blood cultures remain negative at 5 days. RADIOLOGY: Chest x-ray this morning per radiology interpretation shows stable abnormalities which include stable bilateral interstitial airspace consolidation. No pneumothorax or pleural effusions were noted. ASSESSMENT: 1. COVID-19 pneumonitis. 2. Pneumonia secondary to #1, still requiring high flow oxygen, hypoxic on room air. 3. Hypertension, stable. 4. Acute kidney injury now resolved at baseline level. . 5. History of rheumatoid arthritis. PLAN: The patient is still requiring oxygen at high flow but seems to be doing a little bit better. Her white count is going up, I think that is resulting from her steroids which she is continued at this point on Decadron. She did finish a full course of azithromycin so that has been stopped. She remains on Rocephin. She is on Eliquis. Her D-dimer is still showing some elevation, I am not sure if that is pneumonia, we may need to take into consideration to go ahead and do a CT of the chest tomorrow to see if she can tolerate going to physical therapy. Until then, we will continue to encourage good bronchial hygiene. Encouraged to work with respiratory therapy to aggressively work on respiratory toiletry. Possibly, we will be able to transition her within the next 24-48 hours if we can get her oxygen at least down to where she is maintaining it below 5 and can tolerate ambulation, she definitely will have to go home on some oxygen. In regard to the D-dimer elevation, she will remain on Eliquis and again, may go ahead and get a CT of the chest to further rule out that there is not a pulmonary embolus that has resolved in elevation of her D-dimer, but I think it is more related to ongoing developing pneumonia. In regard to her white count elevation, will continue to monitor that. I do not think we need to be more aggressive in management of her antibiotics but will continue to closely monitor and treat as needed until we can transition her to outpatient management. #[id number] [facility]
[2020-03-16] MEDS: AMITRIPTYLINE HCL 25 MG TAB PO SCH (20:14)
[2020-03-16] MEDS: PRAMIPEXOLE 0.25 MG TAB PO SCH (20:14)
[2020-03-16] MEDS: TEMAZEPAM 15 MG CAP PO PRN (20:14)
[2020-03-17] MEDS: OMEPRAZOLE CAP 20 MG CAP PO SCH (05:47)
[2020-03-17] MEDS: NON-FORMULARY MEDICATION 1 EA MIS (Febuxostat [Uloric] 40 MG) PO SCH (08:09)
[2020-03-17] MEDS: NON-FORMULARY MEDICATION 1 EA MIS (Hydroxychloroquine [Plaquenil] 200 MG) PO SCH ×2 (08:09→20:39)
[2020-03-17] MEDS: BIFIDOBACTERIUM INFANTIS 4 MG CAP PO SCH ×2 (08:28→20:37)
[2020-03-17] MEDS: METOPROLOL TARTRATE 25 MG TAB PO SCH ×2 (08:28→20:38)
[2020-03-17] MEDS: APIXABAN 5 MG TAB PO SCH ×2 (08:28→20:37)
[2020-03-17] MEDS: DEXAMETHASONE INJ 10 MG/ML VIAL IV SCH (08:28)
[2020-03-17] MEDS: POTASSIUM CHLORIDE 10 MEQ TAB PO SCH ×2 (08:28→20:37)
[2020-03-17] MEDS: LOSARTAN POTASSIUM 25 MG TAB PO SCH (08:28)
[2020-03-17] MEDS: FUROSEMIDE 40 MG TAB PO SCH (08:28)
[2020-03-17] MEDS: ASPIRIN (CHEWABLE) 81 MG TAB PO SCH (08:28)
[2020-03-17] MEDS: hydroCHLOROthiazide 12.5 MG CAP PO SCH (08:28)
[2020-03-17] MEDS: guaiFENesin ER TAB 600 MG TAB PO SCH ×2 (08:28→20:38)
[2020-03-17] MEDS: amLODIPine BESYLATE 5 MG TAB PO SCH (08:28)
[2020-03-17] MEDS: ALBUTEROL INHALER 64 PUFF/8GM INH SCH ×4 (09:23→20:05)
--- NOTE | 2020-03-17 15:48 | PN ---
SUPERVISING PHYSICIAN: Hawa Cr MD DATE: 03/17/20 SUBJECTIVE: The patient says she is feeling a little bit better today. She is not quite as short of breath. She is still maintaining high flow oxygen. She is maintaining 98 to 96% on 8 liters and not showing any respiratory distress. OBJECTIVE: VITAL SIGNS: Temperature 97.4, pulse 76, blood pressure 154/77, respirations 20, saturation 96 to 98% on 8 liters of high flow nasal cannula. GENERAL: The patient looks to be a little bit short of breath, otherwise not in any distress. . CHEST: Lung sounds are diminished towards the bases. No obvious rhonchi or wheezing noted. HEART: Regular rate and rhythm. ABDOMEN: Soft, nontender. Positive bowel sounds. EXTREMITIES: No edema. NEUROLOGIC: Alert and oriented times three. SKIN: Warm, pink and dry. LABORATORY: White count is down to 12,000 today. Hemoglobin 10.9, hematocrit 32.4, platelet count 271,000. Differential does continue to show a left shift. D-dimer is showing persistent elevation at 1700. Chemistries show normal electrolytes with creatinine 1.06. C-reactive protein still elevated at 9.4. RADIOLOGY: No additional radiographic studies today. ASSESSMENT: 1. COVID-19 pneumonitis. 2. Pneumonia secondary to #1, still requiring high flow oxygen, hypoxic on room air. 3. Hypertension, stable. 4. Acute kidney injury now resolved at baseline level. . 5. History of rheumatoid arthritis. PLAN: Will continue with antibiotic coverage with Rocephin. She remains on Decadron. She has finished a full course of azithromycin. Will continue to work with her aggressively to hopefully get her titrated down on lower flow oxygen as her demand is improving. Will continue with proning and again, more aggressive pulmonary hygiene. Will continue to titrate her oxygen. Until we can get her down, we will continue to monitor and treat as needed. #[id number] [facility]
[2020-03-17] MEDS: cefTRIAXone SODIUM 1 GM in SODIUM CHL 0.9% 50ML MIN-BAG+ 50 ML IVPB SCH (17:00)
[2020-03-17] MEDS: ALPRAZolam 0.25 MG TAB PO PRN (20:38)
[2020-03-17] MEDS: PRAMIPEXOLE 0.25 MG TAB PO SCH (20:38)
[2020-03-17] MEDS: TEMAZEPAM 15 MG CAP PO PRN (20:38)
[2020-03-17] MEDS: AMITRIPTYLINE HCL 25 MG TAB PO SCH (20:38)
[2020-03-18] MEDS: OMEPRAZOLE CAP 20 MG CAP PO SCH (06:08)
[2020-03-18] MEDS: amLODIPine BESYLATE 5 MG TAB PO SCH (10:15)
[2020-03-18] MEDS: guaiFENesin ER TAB 600 MG TAB PO SCH ×2 (10:15→20:04)
[2020-03-18] MEDS: LOSARTAN POTASSIUM 25 MG TAB PO SCH (10:15)
[2020-03-18] MEDS: FUROSEMIDE 40 MG TAB PO SCH (10:15)
[2020-03-18] MEDS: METOPROLOL TARTRATE 25 MG TAB PO SCH ×2 (10:15→20:02)
[2020-03-18] MEDS: ASPIRIN (CHEWABLE) 81 MG TAB PO SCH (10:16)
[2020-03-18] MEDS: DEXAMETHASONE INJ 10 MG/ML VIAL IV SCH (10:16)
[2020-03-18] MEDS: BIFIDOBACTERIUM INFANTIS 4 MG CAP PO SCH ×2 (10:16→20:02)
[2020-03-18] MEDS: APIXABAN 5 MG TAB PO SCH ×2 (10:16→20:03)
[2020-03-18] MEDS: hydroCHLOROthiazide 12.5 MG CAP PO SCH (10:16)
[2020-03-18] MEDS: ALBUTEROL INHALER 64 PUFF/8GM INH SCH ×4 (13:28→20:35)
[2020-03-18] MEDS: NON-FORMULARY MEDICATION 1 EA MIS (Hydroxychloroquine [Plaquenil] 200 MG) PO SCH ×2 (13:56→20:02)
[2020-03-18] MEDS: POTASSIUM CHLORIDE 10 MEQ TAB PO SCH ×2 (13:57→20:02)
[2020-03-18] MEDS: NON-FORMULARY MEDICATION 1 EA MIS (Febuxostat [Uloric] 40 MG) PO SCH (13:57)
[2020-03-18] MEDS: cefTRIAXone SODIUM 1 GM in SODIUM CHL 0.9% 50ML MIN-BAG+ 50 ML IVPB SCH (13:58)
--- NOTE | 2020-03-18 14:17 | PN ---
SUPERVISING PHYSICIAN: Hawa Cr MD DATE: 03/18/20 SUBJECTIVE: The patient is still requiring high flow oxygen. She has not had any distress overnight. She is a little sleepy this morning but I think she got Restoril and Ativan last night, I am going to stop her Restoril. She is back on her chronic pain management and seems to be doing well. I did discuss with her that she is on day #9 of hospitalization and certainly is deconditioned and definitely needs some rehabilitation in regard to physical recruit as well as lung function and discussed possibly going to post Covid rehabilitation at [facility] which she was open to discussion. OBJECTIVE: VITAL SIGNS: Temperature 99.5, pulse 65, blood pressure 150/75, respirations 22 to 24, showing 92 to 95% on 10 liter nasal cannula at rest. GENERAL: The patient looks to be a little bit short of breath, otherwise not in any distress. . CHEST: Lung sounds are diminished towards the bases. No obvious rhonchi or wheezing noted. HEART: Regular rate and rhythm. ABDOMEN: Soft, nontender. Positive bowel sounds. EXTREMITIES: No edema. NEUROLOGIC: Alert and oriented times three. SKIN: Warm, pink and dry. LABORATORY: White count 9,200. Hemoglobin 11.7, hematocrit 35.0, platelet count 199,000. Differential continues to show a left shift. Chemistries show normal electrolytes with creatinine 1.18. RADIOLOGY: Chest x-ray this morning per radiology interpretation shows no improvement in the appearance of the chest compared to previous day. ASSESSMENT: 1. COVID-19 pneumonitis. 2. Pneumonia secondary to #1, still requiring high flow oxygen, hypoxic on room air. 3. Hypertension, stable. 4. Significant deconditioning secondary to lengthy hospitalization. 5. Acute kidney injury now resolved at baseline level. . 6. History of rheumatoid arthritis. PLAN: Will continue with antibiotic coverage with Rocephin and Decadron. Will continue with aggressive management of her oxygen and pulmonary hygiene to see if we can get her titrated down. We did discuss again rehabilitation efforts due to the fact that she is deconditioned and she needs long-term rehabilitation in regard to her pulmonary hygiene. She seems to be open to [facility]. She is on day #9 today. I think it would beneficial if we discussed possible referral to [facility] when she is stable enough which I would think she would be able to go in the next couple of days. Until then, we will continue to monitor and treat as needed. #[id number] [facility]
[2020-03-18] MEDS: IV SET AND CAP CHANGE INJ INJ SCH (18:53)
[2020-03-18] MEDS: PRAMIPEXOLE 0.25 MG TAB PO SCH (20:03)
[2020-03-18] MEDS: AMITRIPTYLINE HCL 25 MG TAB PO SCH (20:03)
[2020-03-18] MEDS: ALPRAZolam 0.25 MG TAB PO PRN (20:03)
[2020-03-19] MEDS: OMEPRAZOLE CAP 20 MG CAP PO SCH (06:35)
[2020-03-19] MEDS: NON-FORMULARY MEDICATION 1 EA MIS (Febuxostat [Uloric] 40 MG) PO SCH (07:35)
[2020-03-19] MEDS: NON-FORMULARY MEDICATION 1 EA MIS (Hydroxychloroquine [Plaquenil] 200 MG) PO SCH ×2 (07:35→21:00)
[2020-03-19] MEDS: POTASSIUM CHLORIDE 10 MEQ TAB PO SCH ×2 (07:53→21:00)
[2020-03-19] MEDS: LOSARTAN POTASSIUM 25 MG TAB PO SCH (07:53)
[2020-03-19] MEDS: ASPIRIN (CHEWABLE) 81 MG TAB PO SCH (07:53)
[2020-03-19] MEDS: guaiFENesin ER TAB 600 MG TAB PO SCH ×2 (07:53→21:00)
[2020-03-19] MEDS: hydroCHLOROthiazide 12.5 MG CAP PO SCH (07:54)
[2020-03-19] MEDS: BIFIDOBACTERIUM INFANTIS 4 MG CAP PO SCH ×2 (07:55→21:06)
[2020-03-19] MEDS: amLODIPine BESYLATE 5 MG TAB PO SCH (07:56)
[2020-03-19] MEDS: APIXABAN 5 MG TAB PO SCH ×2 (07:56→21:00)
[2020-03-19] MEDS: FUROSEMIDE 40 MG TAB PO SCH (07:56)
[2020-03-19] MEDS: DEXAMETHASONE INJ 10 MG/ML VIAL IV SCH (07:57)
[2020-03-19] MEDS: ALBUTEROL INHALER 64 PUFF/8GM INH SCH ×4 (08:04→20:45)
[2020-03-19] MEDS: METOPROLOL TARTRATE 25 MG TAB PO SCH ×2 (09:57→21:00)
--- NOTE | 2020-03-19 15:15 | PN ---
SUPERVISING PHYSICIAN: Tuan Suarez MD DATE: 03/19/20 SUBJECTIVE: The patient seems to be doing a little bit better today. She is still maintaining on high flow nasal cannula. We did discuss going to rehab at [facility] for pulmonary rehab and intermediate project manager maintenance. OBJECTIVE: VITAL SIGNS: Temperature 97.8, pulse 68, blood pressure 142/69, respirations 19 to 20, saturation 92-94% on high flow nasal cannula at 12 liters. GENERAL: The patient looks to be a little bit short of breath, otherwise not in any distress. CHEST: Lung sounds are diminished towards the bases. No obvious rhonchi or wheezing noted. HEART: Regular rate and rhythm. ABDOMEN: Soft, nontender. Positive bowel sounds. EXTREMITIES: No edema. NEUROLOGIC: Alert and oriented times three. SKIN: Warm, pink and dry. LABORATORY: No additional laboratory studies today. RADIOLOGY: No additional radiographic studies today. ASSESSMENT: 1. COVID-19 pneumonitis. 2. Pneumonia secondary to #1, still requiring high flow oxygen, hypoxic on room air. 3. Hypertension, stable. 4. Significant deconditioning secondary to lengthy hospitalization. 5. Acute kidney injury, now resolved at baseline level. 6. History of rheumatoid arthritis. PLAN: Will continue with aggressive bronchial hygiene and try to get her titrated down on her oxygen. I discuss with her going to rehab. The referral has been sent into [facility]. I think at this point it is just usp rehabilitation efforts, both pulmonary and physical efforts to get her back home safely. We will recheck labs in the morning as well as probably check another x-ray. Until the patient can transition to outpatient management, we will continue to monitor and treat as needed. [facility][id number] [facility]
[2020-03-19] MEDS: fentaNYL PATCH 25 MCG/HR 1 EA PATCH TOP SCH (16:16)
[2020-03-19] MEDS: REMOVE OLD PATCH TOP SCH (16:16)
[2020-03-19] MEDS: cefTRIAXone SODIUM 1 GM in SODIUM CHL 0.9% 50ML MIN-BAG+ 50 ML IVPB SCH (16:18)
[2020-03-19] MEDS: PRAMIPEXOLE 0.25 MG TAB PO SCH (21:00)
[2020-03-19] MEDS: ALPRAZolam 0.25 MG TAB PO PRN (21:00)
[2020-03-19] MEDS: AMITRIPTYLINE HCL 25 MG TAB PO SCH (21:00)
[2020-03-20] MEDS: OMEPRAZOLE CAP 20 MG CAP PO SCH (06:13)
--- NOTE | 2020-03-20 06:44 | RAD ---
EXAM DESCRIPTION: Chest,1 View CLINICAL HISTORY: 79 years Female, COVID PNA COMPARISON: 03/18/20 TECHNIQUE: Single AP chest radiograph. FINDINGS: Stable bilateral lung opacities. No pneumothorax or pleural effusion. Stable cardiomediastinal contour. Normal osseous structures. IMPRESSION: 1. Stable bilateral lung opacities Electronically signed by: Urban Kingsley MD 03/20/2020 6:42 AM PHARMACY ASSISTANT
[2020-03-20] MEDS: BIFIDOBACTERIUM INFANTIS 4 MG CAP PO SCH ×2 (09:00→21:48)
[2020-03-20] MEDS: ALBUTEROL INHALER 64 PUFF/8GM INH SCH ×4 (09:36→21:15)
[2020-03-20] MEDS: LOSARTAN POTASSIUM 25 MG TAB PO SCH (10:02)
[2020-03-20] MEDS: amLODIPine BESYLATE 5 MG TAB PO SCH (10:02)
[2020-03-20] MEDS: APIXABAN 5 MG TAB PO SCH ×2 (10:02→21:49)
[2020-03-20] MEDS: POTASSIUM CHLORIDE 10 MEQ TAB PO SCH ×2 (10:02→21:48)
[2020-03-20] MEDS: FUROSEMIDE 40 MG TAB PO SCH (10:02)
[2020-03-20] MEDS: DEXAMETHASONE INJ 10 MG/ML VIAL IV SCH (10:02)
[2020-03-20] MEDS: guaiFENesin ER TAB 600 MG TAB PO SCH ×2 (10:03→21:49)
[2020-03-20] MEDS: NON-FORMULARY MEDICATION 1 EA MIS (Febuxostat [Uloric] 40 MG) PO SCH (10:03)
[2020-03-20] MEDS: ASPIRIN (CHEWABLE) 81 MG TAB PO SCH (10:03)
[2020-03-20] MEDS: METOPROLOL TARTRATE 25 MG TAB PO SCH ×2 (10:03→21:48)
[2020-03-20] MEDS: hydroCHLOROthiazide 12.5 MG CAP PO SCH (10:03)
[2020-03-20] MEDS: NON-FORMULARY MEDICATION 1 EA MIS (Hydroxychloroquine [Plaquenil] 200 MG) PO SCH ×2 (10:03→21:49)
--- NOTE | 2020-03-20 11:14 | PN ---
SUPERVISING PHYSICIAN: Tuan Suarez MD DATE: 03/20/20 SUBJECTIVE: The patient feels like she is less short of breath than she has been, however, she is still requiring quite a bit of oxygen. She is currently using 12 liters of oxygen at this time and saturations are around 92%. She otherwise is in no distress. OBJECTIVE: VITAL SIGNS: Blood pressure 121/62, heart rate 62, respiratory rate 20, temperature 97.8, oxygen saturation 92% on 12 liters via nasal cannula. GENERAL: Ms. Warner is a 79-year-old female who is in no active distress. NEUROLOGIC: The patient is alert. LUNGS: Diminished. CARDIOVASCULAR: Regular rate and rhythm. Normal S1, S2. ABDOMEN: Soft. Positive bowel sounds. EXTREMITIES: Lower extremities with no edema. LABORATORY: CRP 5.2, D-dimer down to 919. RADIOLOGY: Chest x-ray shows still with bilateral lung opacities consistent with COVID pneumonitis. ASSESSMENT: 1. COVID-19 pneumonitis. 2. Hypertension, stable. 3. Disuse myopathy. 4. History of rheumatoid arthritis. PLAN: We will continue current medications and check labs as needed. At this point, we are just trying to wean her oxygen enough to where she can go to [facility] for rehab, however, she is still requiring too much oxygen to go to that facility. #[id number] [facility]
[2020-03-20] MEDS: cefTRIAXone SODIUM 1 GM in SODIUM CHL 0.9% 50ML MIN-BAG+ 50 ML IVPB SCH (15:28)
[2020-03-20] MEDS: AMITRIPTYLINE HCL 25 MG TAB PO SCH (21:45)
[2020-03-20] MEDS: PRAMIPEXOLE 0.25 MG TAB PO SCH (21:49)
[2020-03-21] MEDS: OMEPRAZOLE CAP 20 MG CAP PO SCH (06:17)
--- NOTE | 2020-03-21 07:55 | RAD ---
EXAM DESCRIPTION: Chest,1 View CLINICAL HISTORY: 79 years Female, hypoxia/COVID COMPARISON: March 20, 2020 TECHNIQUE: AP portable chest. FINDINGS: Single view of the chest demonstrates little change from previous study with patchy subsegmental peripheral consolidation in lung opacities. Allowing for publishing manager film technique little change from previous day's study noted. Stable mediastinal contour without vascular congestion. No significant pleural effusions. The infiltrative changes are most prominent in the left lung base, right mid lung field and peripherally in the left apical region. IMPRESSION: Stable chest with very little change from prior study. Electronically signed by: Alonzo Rojas MD 03/21/2020 7:53 AM VISUAL MERCHANDISING MANAGER
[2020-03-21] MEDS: DEXAMETHASONE INJ 10 MG/ML VIAL IV SCH (08:31)
[2020-03-21] MEDS: guaiFENesin ER TAB 600 MG TAB PO SCH ×2 (08:31→20:09)
[2020-03-21] MEDS: NON-FORMULARY MEDICATION 1 EA MIS (Febuxostat [Uloric] 40 MG) PO SCH (08:32)
[2020-03-21] MEDS: APIXABAN 5 MG TAB PO SCH ×2 (08:32→20:09)
[2020-03-21] MEDS: LOSARTAN POTASSIUM 25 MG TAB PO SCH (08:32)
[2020-03-21] MEDS: ASPIRIN (CHEWABLE) 81 MG TAB PO SCH (08:32)
[2020-03-21] MEDS: BIFIDOBACTERIUM INFANTIS 4 MG CAP PO SCH ×2 (08:32→20:09)
[2020-03-21] MEDS: FUROSEMIDE 40 MG TAB PO SCH (08:32)
[2020-03-21] MEDS: POTASSIUM CHLORIDE 10 MEQ TAB PO SCH ×2 (08:32→20:09)
[2020-03-21] MEDS: hydroCHLOROthiazide 12.5 MG CAP PO SCH (08:32)
[2020-03-21] MEDS: amLODIPine BESYLATE 5 MG TAB PO SCH (08:32)
[2020-03-21] MEDS: NON-FORMULARY MEDICATION 1 EA MIS (Hydroxychloroquine [Plaquenil] 200 MG) PO SCH ×2 (08:33→20:10)
[2020-03-21] MEDS: ALBUTEROL INHALER 64 PUFF/8GM INH SCH ×4 (08:35→20:40)
--- NOTE | 2020-03-21 11:02 | PN ---
SUPERVISING PHYSICIAN: Tuan Suarez MD DATE: 03/21/20 SUBJECTIVE: The patient feels okay, no shortness of breath. Occasional cough. No nausea or vomiting. OBJECTIVE: VITAL SIGNS: Blood pressure 122/65, heart rate 60, respiratory rate 20, temperature 97.9, oxygen saturation 94% on 10 liters via nasal cannula. GENERAL: Ms. Warner is a 79-year-old female who is still ill in appearance, but does not have any distress at this time. NEUROLOGIC: The patient is alert. LUNGS: Diminished. CARDIOVASCULAR: Regular rate and rhythm. Normal S1, S2. ABDOMEN: Soft. Positive bowel sounds. EXTREMITIES: Lower extremities with no edema. LABORATORY: White count 13.6, hemoglobin 11.7, platelet count 245. D-dimer down to 841. Chemistry with CRP down to 4.0. Other chemistry findings are not changed significantly. RADIOLOGY: Chest x-ray shows no change from prior study. ASSESSMENT: 1. COVID-19 pneumonitis. 2. Hypoxia secondary to #1. 3. Hypertension. 4. Disuse myopathy. 5. History of rheumatoid arthritis. PLAN: Once again, the patient is still requiring too much oxygen to go to [facility]. The goal is to get her down to 4 to 5 liters so she can go there, but we have been unable to wean the oxygen. We will continue to attempt this. Continue current therapy until that time. #[id number] [facility]
[2020-03-21] MEDS: METOPROLOL TARTRATE 25 MG TAB PO SCH ×2 (12:18→20:09)
[2020-03-21] MEDS: cefTRIAXone SODIUM 1 GM in SODIUM CHL 0.9% 50ML MIN-BAG+ 50 ML IVPB SCH ×2 (12:19→15:07)
[2020-03-21] MEDS: IV SET AND CAP CHANGE INJ INJ SCH (17:32)
[2020-03-21] MEDS ORDERED: APIXABAN 5 MG TAB PO ONE (19:28)
[2020-03-21] MEDS: PRAMIPEXOLE 0.25 MG TAB PO SCH (20:09)
[2020-03-21] MEDS: AMITRIPTYLINE HCL 25 MG TAB PO SCH (20:09)
[2020-03-22] MEDS: OMEPRAZOLE CAP 20 MG CAP PO SCH (05:45)
[2020-03-22] MEDS: POTASSIUM CHLORIDE 10 MEQ TAB PO SCH ×2 (08:20→21:10)
[2020-03-22] MEDS: BIFIDOBACTERIUM INFANTIS 4 MG CAP PO SCH ×2 (08:21→21:08)
[2020-03-22] MEDS: ASPIRIN (CHEWABLE) 81 MG TAB PO SCH (08:21)
[2020-03-22] MEDS: FUROSEMIDE 40 MG TAB PO SCH (08:21)
[2020-03-22] MEDS: hydroCHLOROthiazide 12.5 MG CAP PO SCH (08:21)
[2020-03-22] MEDS: APIXABAN 5 MG TAB PO SCH ×2 (08:21→21:09)
[2020-03-22] MEDS: LOSARTAN POTASSIUM 25 MG TAB PO SCH (08:22)
[2020-03-22] MEDS: amLODIPine BESYLATE 5 MG TAB PO SCH (08:22)
[2020-03-22] MEDS: METOPROLOL TARTRATE 25 MG TAB PO SCH ×2 (08:22→21:10)
[2020-03-22] MEDS: guaiFENesin ER TAB 600 MG TAB PO SCH ×2 (08:22→21:10)
[2020-03-22] MEDS: NON-FORMULARY MEDICATION 1 EA MIS (Hydroxychloroquine [Plaquenil] 200 MG) PO SCH ×2 (08:23→21:11)
[2020-03-22] MEDS: NON-FORMULARY MEDICATION 1 EA MIS (Febuxostat [Uloric] 40 MG) PO SCH (08:23)
[2020-03-22] MEDS: ALBUTEROL INHALER 64 PUFF/8GM INH SCH ×4 (08:45→20:00)
[2020-03-22] MEDS: REMOVE OLD PATCH TOP SCH (14:50)
[2020-03-22] MEDS: fentaNYL PATCH 25 MCG/HR 1 EA PATCH TOP SCH (14:50)
[2020-03-22] MEDS: cefTRIAXone SODIUM 1 GM in SODIUM CHL 0.9% 50ML MIN-BAG+ 50 ML IVPB SCH (14:55)
[2020-03-22] MEDS ORDERED: BISACODYL TAB 5 MG TAB PO PRN (15:57)
[2020-03-22] MEDS: PRAMIPEXOLE 0.25 MG TAB PO SCH (21:09)
[2020-03-22] MEDS: AMITRIPTYLINE HCL 25 MG TAB PO SCH (21:10)
[2020-03-23] MEDS: OMEPRAZOLE CAP 20 MG CAP PO SCH (05:51)
[2020-03-23] MEDS: LOSARTAN POTASSIUM 25 MG TAB PO SCH (08:12)
[2020-03-23] MEDS: POTASSIUM CHLORIDE 10 MEQ TAB PO SCH ×2 (08:12→20:44)
[2020-03-23] MEDS: ASPIRIN (CHEWABLE) 81 MG TAB PO SCH (08:12)
[2020-03-23] MEDS: METOPROLOL TARTRATE 25 MG TAB PO SCH ×2 (08:12→20:44)
[2020-03-23] MEDS: BIFIDOBACTERIUM INFANTIS 4 MG CAP PO SCH ×2 (08:12→20:44)
[2020-03-23] MEDS: hydroCHLOROthiazide 12.5 MG CAP PO SCH (08:12)
[2020-03-23] MEDS: APIXABAN 5 MG TAB PO SCH ×2 (08:12→20:44)
[2020-03-23] MEDS: NON-FORMULARY MEDICATION 1 EA MIS (Hydroxychloroquine [Plaquenil] 200 MG) PO SCH ×2 (08:13→20:47)
[2020-03-23] MEDS: NON-FORMULARY MEDICATION 1 EA MIS (Febuxostat [Uloric] 40 MG) PO SCH (08:13)
[2020-03-23] MEDS: FUROSEMIDE 40 MG TAB PO SCH (08:13)
[2020-03-23] MEDS: amLODIPine BESYLATE 5 MG TAB PO SCH (08:13)
[2020-03-23] MEDS: guaiFENesin ER TAB 600 MG TAB PO SCH ×2 (08:13→20:44)
--- NOTE | 2020-03-23 08:15 | PN ---
SUPERVISING PHYSICIAN: Tuan Suarez MD DATE: 03/22/20 SUBJECTIVE: The patient is lying in bed. Her only complaint is she has not had a bowel movement in 2 days. She denies chest pain, nausea or vomiting. OBJECTIVE: VITAL SIGNS: Temperature 98, heart rate 65, blood pressure 118/71, respiratory rate 17, O2 saturation 94% on 10 liters high flow. She does drop to about 90- 91% on about 6 liters nasal cannula. RESPIRATORY: Diminished breath sounds throughout, but otherwise clear to auscultation. CARDIAC: Regular rate and rhythm. NEUROLOGIC: Awake, alert and oriented times three. LABORATORY: No labs or x-rays to report today. ASSESSMENT: 1. COVID-19 pneumonitis. 2. Hypoxia secondary to #1. 3. Hypertension. 4. Disuse myopathy. 5. History of rheumatoid arthritis. PLAN: We will continue present supportive care and continue to try to titrate down her O2. I did order some lab, but no chest x-ray in the morning. Hopefully in the next several days, she can be titrated down to less than 4 to 5 liters per minute and she can be discharged to [facility]. We will monitor and treat as needed. #[id number] [facility]
[2020-03-23] MEDS: ALBUTEROL INHALER 64 PUFF/8GM INH SCH ×4 (08:45→21:34)
--- NOTE | 2020-03-23 19:19 | PN ---
SUPERVISING PHYSICIAN: Tuan Suarez MD DATE: 03/23/20 SUBJECTIVE: The patient is lying in bed. She has no complaints although she has not had a bowel movement in several days. She denies chest pain nausea or vomiting. OBJECTIVE: VITAL SIGNS: Temperature 97.8, heart rate 66, blood pressure 132/69, respiratory rate 20, O2 saturation 96% on high flow nasal cannula at10 liters per minute. RESPIRATORY: Diminished breath sounds throughout, but otherwise clear to auscultation. CARDIAC: Regular rate and rhythm. NEUROLOGIC: Awake, alert and oriented times three. LABORATORY: Magnesium 2.3, creatinine kinase 49. WBCs 11.9, hemoglobin 12.9, hematocrit 39.3. She does have a left shift on her differential. D-dimer 623. All other labs and films have been reviewed via the EMR. ASSESSMENT: 1. COVID-19 pneumonitis. 2. Hypoxia secondary to #1. 3. Hypertension. 4. Disuse myopathy. 5. History of rheumatoid arthritis. PLAN: We will continue present supportive care. She should be going out of isolation in the next day or so. She has been in the hospital since 03/09/20. I have ordered physical therapy for aggressive PT and once her oxygen requirements have decreased, she should be able to go [facility] as she has been accepted. She is still on 10 liters high flow. We will continue to try to titrate that down. I will hold on labs and x-rays at this time as those have fairly well stabilized. She is no longer on any antibiotics. We will monitor her closely. #[id number] [facility]
[2020-03-23] MEDS: PRAMIPEXOLE 0.25 MG TAB PO SCH (20:45)
[2020-03-23] MEDS: AMITRIPTYLINE HCL 25 MG TAB PO SCH (20:45)
[2020-03-23] MEDS ORDERED: ALPRAZolam 0.25 MG TAB PO PRN (21:18)
[2020-03-23] MEDS ORDERED: TEMAZEPAM 15 MG CAP PO PRN (21:18)
[2020-03-24] MEDS: OMEPRAZOLE CAP 20 MG CAP PO SCH (06:07)
[2020-03-24] MEDS: ALBUTEROL INHALER 64 PUFF/8GM INH SCH ×4 (09:36→21:15)
[2020-03-24] MEDS: POTASSIUM CHLORIDE 10 MEQ TAB PO SCH ×2 (10:05→20:13)
[2020-03-24] MEDS: ASPIRIN (CHEWABLE) 81 MG TAB PO SCH (10:05)
[2020-03-24] MEDS: APIXABAN 5 MG TAB PO SCH ×2 (10:05→20:14)
[2020-03-24] MEDS: BIFIDOBACTERIUM INFANTIS 4 MG CAP PO SCH ×2 (10:05→20:13)
[2020-03-24] MEDS: METOPROLOL TARTRATE 25 MG TAB PO SCH ×2 (10:05→20:13)
[2020-03-24] MEDS: hydroCHLOROthiazide 12.5 MG CAP PO SCH (10:05)
[2020-03-24] MEDS: guaiFENesin ER TAB 600 MG TAB PO SCH ×2 (10:05→20:14)
[2020-03-24] MEDS: FUROSEMIDE 40 MG TAB PO SCH (10:05)
[2020-03-24] MEDS: amLODIPine BESYLATE 5 MG TAB PO SCH (10:05)
[2020-03-24] MEDS: LOSARTAN POTASSIUM 25 MG TAB PO SCH (10:06)
[2020-03-24] MEDS: NON-FORMULARY MEDICATION 1 EA MIS (Febuxostat [Uloric] 40 MG) PO SCH (10:06)
[2020-03-24] MEDS: NON-FORMULARY MEDICATION 1 EA MIS (Hydroxychloroquine [Plaquenil] 200 MG) PO SCH ×2 (10:06→20:12)
[2020-03-24] MEDS: PRAMIPEXOLE 0.25 MG TAB PO SCH (20:13)
[2020-03-24] MEDS: AMITRIPTYLINE HCL 25 MG TAB PO SCH (20:13)
[2020-03-25] MEDS: IV SET AND CAP CHANGE INJ INJ SCH (06:09)
[2020-03-25] MEDS: OMEPRAZOLE CAP 20 MG CAP PO SCH (06:09)
--- NOTE | 2020-03-25 09:21 | PN ---
SUPERVISING PHYSICIAN: Tuan Suarez MD DATE: 03/24/20 SUBJECTIVE: The patient is only able to titrate a little bit down on her oxygen. She has no complaints and has been resting well. OBJECTIVE: VITAL SIGNS: Temperature 97.1, pulse 62, blood pressure 93/61, respirations 16, oxygen saturation anywhere from 91 to 95% on 10 liters. GENERAL: Patient looks to be resting comfortably and In no distress noted. She is alert. CHEST: Lung sounds remain diminished. HEART: Regular rate and rhythm. ABDOMEN: Soft, negative, positive bowel sounds. EXTREMITIES: No edema. NEUROLOGIC: Alert and oriented x 3. LABORATORY: No additional laboratory studies today. RADIOLOGY: No additional radiographic studies today. ASSESSMENT: 1. COVID-19 pneumonitis. 2. Hypoxia secondary to #1. 3. Hypertension. 4. Disuse myopathy. 5. History of rheumatoid arthritis. PLAN: We will again continue to titrate the patient down on her 02 needs. She does have physical therapy ordered. Hopefully, when we can get her titrated down at least below 5 liters, she can go to [facility] because she is going to need a long-term rehabilitation at this point. We will continue to follow her labs as needed. At this point, they seem to be stable. Until we can transition patient to outpatient management, we will continue to monitor and treat as needed. #[id number] MTDD
[2020-03-25] MEDS: ALBUTEROL INHALER 64 PUFF/8GM INH SCH ×4 (09:38→21:25)
[2020-03-25] MEDS: guaiFENesin ER TAB 600 MG TAB PO SCH ×2 (09:54→20:26)
[2020-03-25] MEDS: ASPIRIN (CHEWABLE) 81 MG TAB PO SCH (09:54)
[2020-03-25] MEDS: BIFIDOBACTERIUM INFANTIS 4 MG CAP PO SCH ×2 (09:54→20:26)
[2020-03-25] MEDS: FUROSEMIDE 40 MG TAB PO SCH (09:54)
[2020-03-25] MEDS: amLODIPine BESYLATE 5 MG TAB PO SCH (09:54)
[2020-03-25] MEDS: LOSARTAN POTASSIUM 25 MG TAB PO SCH (09:54)
[2020-03-25] MEDS: NON-FORMULARY MEDICATION 1 EA MIS (Febuxostat [Uloric] 40 MG) PO SCH (09:54)
[2020-03-25] MEDS: hydroCHLOROthiazide 12.5 MG CAP PO SCH (09:54)
[2020-03-25] MEDS: METOPROLOL TARTRATE 25 MG TAB PO SCH ×2 (09:54→20:25)
[2020-03-25] MEDS: NON-FORMULARY MEDICATION 1 EA MIS (Hydroxychloroquine [Plaquenil] 200 MG) PO SCH ×2 (09:54→20:25)
[2020-03-25] MEDS: APIXABAN 5 MG TAB PO SCH ×2 (09:54→20:26)
[2020-03-25] MEDS: POTASSIUM CHLORIDE 10 MEQ TAB PO SCH ×2 (09:54→20:26)
[2020-03-25] MEDS: fentaNYL PATCH 25 MCG/HR 1 EA PATCH TOP SCH (16:45)
[2020-03-25] MEDS: REMOVE OLD PATCH TOP SCH (16:45)
--- NOTE | 2020-03-25 19:17 | PN ---
SUPERVISING PHYSICIAN: Tuan Suarez MD DATE: 03/25/20 SUBJECTIVE: The patient continues to be able to come off the FI02 and requirements a little bit. She has no other complaints. She has been doing well. She is anxious to move to the next stage of her recovery phase which hopefully will be [facility]. OBJECTIVE: VITAL SIGNS: Temperature 97.1, pulse 63, blood pressure 109/64, respirations 16, oxygen saturation anywhere from 95% on high flow at 7 liters. GENERAL: Patient looks to be resting comfortably and In no distress noted. She is alert. CHEST: Lung sounds remain diminished. HEART: Regular rate and rhythm. ABDOMEN: Soft, negative, positive bowel sounds. EXTREMITIES: No edema. NEUROLOGIC: Alert and oriented x 3. LABORATORY: No additional laboratory studies today. RADIOLOGY: No additional radiographic studies today. ASSESSMENT: 1. COVID-19 pneumonitis. 2. Hypoxia secondary to #1. 3. Hypertension. 4. Disuse myopathy. 5. History of rheumatoid arthritis. PLAN: We will again continue to work with her bronchial hygiene to titrate her oxygen requirements down to acceptable levels so she can continue with further outpatient management through rehabilitation at [facility]. Hopefully, this will occur tomorrow. Until then, we will continue to monitor and treat as needed.. YAD
[2020-03-25] MEDS: PRAMIPEXOLE 0.25 MG TAB PO SCH (20:25)
[2020-03-25] MEDS: AMITRIPTYLINE HCL 25 MG TAB PO SCH (20:26)
[2020-03-26] MEDS: OMEPRAZOLE CAP 20 MG CAP PO SCH (06:11)
[2020-03-26] MEDS: ALBUTEROL INHALER 64 PUFF/8GM INH SCH ×4 (08:23→20:00)
[2020-03-26] MEDS: NON-FORMULARY MEDICATION 1 EA MIS (Febuxostat [Uloric] 40 MG) PO SCH (10:08)
[2020-03-26] MEDS: NON-FORMULARY MEDICATION 1 EA MIS (Hydroxychloroquine [Plaquenil] 200 MG) PO SCH ×2 (10:08→21:30)
[2020-03-26] MEDS: POTASSIUM CHLORIDE 10 MEQ TAB PO SCH ×2 (10:08→21:31)
[2020-03-26] MEDS: ASPIRIN (CHEWABLE) 81 MG TAB PO SCH (10:09)
[2020-03-26] MEDS: amLODIPine BESYLATE 5 MG TAB PO SCH ×2 (10:09→10:48)
[2020-03-26] MEDS: LOSARTAN POTASSIUM 25 MG TAB PO SCH ×2 (10:09→10:48)
[2020-03-26] MEDS: BIFIDOBACTERIUM INFANTIS 4 MG CAP PO SCH ×2 (10:09→21:31)
[2020-03-26] MEDS: guaiFENesin ER TAB 600 MG TAB PO SCH ×2 (10:09→21:31)
[2020-03-26] MEDS: FUROSEMIDE 40 MG TAB PO SCH (10:09)
[2020-03-26] MEDS: METOPROLOL TARTRATE 25 MG TAB PO SCH ×2 (10:09→21:30)
[2020-03-26] MEDS: APIXABAN 5 MG TAB PO SCH ×2 (10:09→21:30)
[2020-03-26] MEDS: hydroCHLOROthiazide 12.5 MG CAP PO SCH ×2 (10:09→10:48)
[2020-03-26] MEDS ORDERED: MAGNESIUM HYDROXIDE 30 ML UD ONE (16:57)
--- NOTE | 2020-03-26 17:33 | PN ---
SUPERVISING PHYSICIAN: Alonzo Warner MD DATE: 03/26/20 SUBJECTIVE: The patient is assisted up to the bedside commode by her nurse. The patient reports not having a bowel movement in several days. Other than that, she is very weak, but fairly good spirits. OBJECTIVE: VITAL SIGNS: Temperature 97.5, heart rate 97, blood pressure 98/61, respiratory rate 20, O2 saturation 92% on 4 liters nasal cannula. RESPIRATORY: Poor inspiratory effort and diminished at the bases. CARDIAC: Regular rate and rhythm. NEUROLOGIC: Awake, alert. LABORATORY: There are no labs or films to report at this time. ASSESSMENT: 1. COVID-19 pneumonitis. 2. Hypoxia secondary to #1. 3. Hypertension. 4. Disuse myopathy. 5. History of rheumatoid arthritis. PLAN: We will continue to titrate down her oxygen as tolerated and continue on the COVID-19 guidelines. She has completed her medications, but we will repeat her labs in the next day or so,prior to discharge. All appropriate paperwork has been sent to [facility] and hopefully she can be discharged to [facility] tomorrow or the next day. I have also ordered some Milk of Magnesia for her constipation. #[id number] MTDD
[2020-03-26] MEDS: MAGNESIUM HYDROXIDE 30 ML UD PO SCH ×2 (18:17→21:30)
[2020-03-26] MEDS: AMITRIPTYLINE HCL 25 MG TAB PO SCH (21:30)
[2020-03-26] MEDS: PRAMIPEXOLE 0.25 MG TAB PO SCH (21:31)
[2020-03-27] MEDS: OMEPRAZOLE CAP 20 MG CAP PO SCH (06:27)
[2020-03-27] MEDS: ALBUTEROL INHALER 64 PUFF/8GM INH SCH ×4 (08:30→22:30)
[2020-03-27] MEDS: BIFIDOBACTERIUM INFANTIS 4 MG CAP PO SCH ×2 (12:53→21:16)
[2020-03-27] MEDS: METOPROLOL TARTRATE 25 MG TAB PO SCH ×3 (12:53→21:55)
[2020-03-27] MEDS: ASPIRIN (CHEWABLE) 81 MG TAB PO SCH (12:53)
[2020-03-27] MEDS: APIXABAN 5 MG TAB PO SCH ×2 (12:54→21:17)
[2020-03-27] MEDS: POTASSIUM CHLORIDE 10 MEQ TAB PO SCH ×2 (12:54→21:17)
[2020-03-27] MEDS: amLODIPine BESYLATE 5 MG TAB PO SCH (12:54)
[2020-03-27] MEDS: LOSARTAN POTASSIUM 25 MG TAB PO SCH (12:54)
[2020-03-27] MEDS: FUROSEMIDE 40 MG TAB PO SCH (12:54)
[2020-03-27] MEDS: NON-FORMULARY MEDICATION 1 EA MIS (Hydroxychloroquine [Plaquenil] 200 MG) PO SCH ×2 (12:54→21:18)
[2020-03-27] MEDS: guaiFENesin ER TAB 600 MG TAB PO SCH ×2 (12:54→21:17)
[2020-03-27] MEDS: hydroCHLOROthiazide 12.5 MG CAP PO SCH (12:54)
[2020-03-27] MEDS: NON-FORMULARY MEDICATION 1 EA MIS (Febuxostat [Uloric] 40 MG) PO SCH (12:55)
[2020-03-27] MEDS: AMITRIPTYLINE HCL 25 MG TAB PO SCH (21:17)
[2020-03-27] MEDS: PRAMIPEXOLE 0.25 MG TAB PO SCH (21:17)
[2020-03-27] MEDS: IV SET AND CAP CHANGE INJ INJ SCH (22:21)
[2020-03-28] MEDS: OMEPRAZOLE CAP 20 MG CAP PO SCH (05:48)
--- NOTE | 2020-03-28 07:57 | RAD ---
EXAM DESCRIPTION: Chest,1 View CLINICAL HISTORY: 79 years Female, covid COMPARISON: Previous study TECHNIQUE: AP portable chest. FINDINGS: Heart size is prominent with indeterminate pulmonary vascularity. Extensive bilateral pulmonary infiltrates consistent with pneumonia. No significant change since previous study. Surgical clips in the right axillary region and upper right chest wall. No pulmonary mass or worrisome nodule. No pneumothorax or pleural effusion. Bones are unremarkable. IMPRESSION: Bilateral pulmonary infiltrates consistent with pneumonia. Electronically signed by: Domingo Mackenzie MD 03/28/2020 7:56 AM [facility]
--- NOTE | 2020-03-28 08:45 | PN ---
SUPERVISING PHYSICIAN: Alonzo Warner MD DATE: 03/27/20 SUBJECTIVE: The patient is lying in bed. She is very weak. She denies any chest pain, but continues to have shortness of breath with any exertion. It is reported by nursing that it is very difficult to transfer her. OBJECTIVE: VITAL SIGNS: Temperature 98.1, heart rate 70, blood pressure 100/63, respiratory rate 20, O2 saturation 93% on 5 liters nasal cannula. RESPIRATORY: Diminished throughout. CARDIAC: Regular rate and rhythm. NEUROLOGIC: Awake, but lethargic. She answers a few simple questions appropriately. LABORATORY: There are no labs or films to report at this time. ASSESSMENT: 1. COVID-19 pneumonitis. 2. Hypoxia secondary to #1. 3. Hypertension. 4. Disuse myopathy. 5. History of rheumatoid arthritis. PLAN: We will continue present supportive care including COVID guidelines. I have renewed her Eliquis and I have ordered labs and chest x-ray tomorrow. [facility] has refused to accept the patient in transfer, so I have contacted [employer] to discuss with the patient if she should go to [facility] or to [facility]. She will need extensive therapy. I have also requested that Physical Therapy see her twice daily as she is becoming more weak with disuse. We will monitor the patient closely and follow as needed. #[id number] MTDD
[2020-03-28] MEDS: ASPIRIN (CHEWABLE) 81 MG TAB PO SCH (09:37)
[2020-03-28] MEDS: LOSARTAN POTASSIUM 25 MG TAB PO SCH (09:37)
[2020-03-28] MEDS: METOPROLOL TARTRATE 25 MG TAB PO SCH (09:37)
[2020-03-28] MEDS: FUROSEMIDE 40 MG TAB PO SCH (09:37)
[2020-03-28] MEDS: APIXABAN 5 MG TAB PO SCH (09:37)
[2020-03-28] MEDS: POTASSIUM CHLORIDE 10 MEQ TAB PO SCH (09:37)
[2020-03-28] MEDS: hydroCHLOROthiazide 12.5 MG CAP PO SCH (09:37)
[2020-03-28] MEDS: BIFIDOBACTERIUM INFANTIS 4 MG CAP PO SCH (09:37)
[2020-03-28] MEDS: amLODIPine BESYLATE 5 MG TAB PO SCH (09:37)
[2020-03-28] MEDS: NON-FORMULARY MEDICATION 1 EA MIS (Hydroxychloroquine [Plaquenil] 200 MG) PO SCH (09:38)
[2020-03-28] MEDS: guaiFENesin ER TAB 600 MG TAB PO SCH (09:38)
[2020-03-28] MEDS: NON-FORMULARY MEDICATION 1 EA MIS (Febuxostat [Uloric] 40 MG) PO SCH (09:38)
[2020-03-28] MEDS: ALBUTEROL INHALER 64 PUFF/8GM INH SCH ×2 (10:00→13:16)
[2020-03-28] MEDS: fentaNYL PATCH 25 MCG/HR 1 EA PATCH TOP SCH (14:22)
[2020-03-28] MEDS: REMOVE OLD PATCH TOP SCH (14:23)
[2020-03-28 15:44] VITALS: BP 112/71; TEMP 97; O2SAT 93
--- NOTE | 2020-04-09 10:31 | DS ---
SUPERVISING PHYSICIAN: Alonzo Warner MD ADMISSION DIAGNOSIS: 1. COVID-19 pneumonitis. 2. Hypertension. 3. Acute kidney injury. 4. Rheumatoid arthritis. DISCHARGE DIAGNOSIS: 1. COVID-19 pneumonitis, resolved, but the patient is extremely weakened from long hospital stay. 2. Hypoxia secondary to #1. 3. Hypertension. 4. Disuse myopathy. 5. History of rheumatoid arthritis. HISTORY OF PRESENT ILLNESS: This is a 79-year-old female who had been feeling fairly poorly for about a week. She progressively worsened over the last week and went to the clinic to get tested. She tested positive for COVID. She also had low oxygen saturations. She was sent to the Emergency Room due to her hypoxia. In the ER, she was initially found to have O2 saturations in the mid- 90s, but they would drop into the mid-80s with any exertion, so she was placed on 2 liters nasal cannula. Her temperature was 99.8 and her vital signs were otherwise within normal limits. Labs showed a normal white count of 5.3, hemoglobin 11.5, hematocrit 33.8, platelet count 195. D-dimer elevated at 1470. Chemistry showed slightly low potassium at 3.5, BUN 19, creatinine 1.34. Calcium 8.7, CRP 13.4. Troponin was slightly elevated a little bit at 0.06 and several hours later improved to 0.05. She had no complaints of chest pain. Chest x-ray was done and showed bilateral patchy infiltrates consistent with COVID-19. Due to hypoxia, the patient was admitted to the hospital. HOSPITAL COURSE: The patient was admitted to the hospital and placed on routine COVID guideline medications and testing. Her medications were Remdesivir, dexamethasone, azithromycin, and Rocephin. She also had albuterol inhaler both scheduled and p.r.n. with aggressive pulmonary hygiene. She was also started on Eliquis for DVT prophylaxis and her elevated D-dimer. Her initial several days at the hospital were fairly stable and she continued on the COVID guidelines. She continued to have some shortness of breath with any exertion, but actually had improved clinically. She was still requiring oxygen and we were trying to get her weaned off of the O2. She was started on Restoril for sleep. She continued to have exertional hypoxia. Her Eliquis was increased to 5 mg b.i.d. Over the next several days, she became increasingly weak and her oxygen requirements continued to increase. She was very anxious due to her declining state and she was given some Xanax for anxiety. Her labs continued to improve except for her D-dimer. She was changed to Lovenox. Her respiratory status was monitored closely. Over the next week or so, she would have one good day and one bad day, but she continued to have high oxygen requirement in spite of aggressive pulmonary hygiene. We actually changed her from inhalers to nebulizer treatments. She was actually eventually placed on high flow oxygen. Physical therapy was also consulted due to her increasing weakness. We were able to wean her oxygen down some and an [facility] referral was initiated as it was felt that due to her long hospital stay, she would benefit from rehab after discharge. She was initially accepted once her O2 requirements were less than 5 liters per minute. At this point, she had completed her COVID medications. She again had an exacerbation that required increased oxygen. At that point, [facility] refused to take her and after discussing it with her as well as her , once her oxygen was down to less than 4 liters per minute, it was felt she would benefit from being discharged to [facility] with some physical therapy. They both agreed to that. Today, she is requiring oxygen 3 to 4 liters per minute. She is no longer in isolation due to COVID as she has completed her isolation. She will be discharged to [facility] today in fair condition. LABORATORY: WBCs were as low as 2.8 and as high as 14.2 and are now stable at 9.5. Hemoglobin remained stable at 11.5, hematocrit 33.6. D-dimer was as high as 2,090 and on discharge it was 188. Fibrinogen 498. Sodium stable at 139, potassium 4.6, BUN is up to 72. Creatinine 1.79. C-reactive protein was as high as 13.8 and went down to 3.8 and is now 4.3. MICROBIOLOGY: Blood cultures showed no growth after 5 days. RADIOLOGY: Her final chest x-ray showed bilateral pulmonary infiltrates consistent with pneumonia. DISCHARGE PLAN: The patient will be discharged to [facility] today. She is in fair condition. She is to resume her previous diet and increase her activity as tolerated. She needs a physical therapy evaluation. She is to followup with Dr. Cr within the next 1 to 2 weeks. She has completed her COVID medications. She is to continue her routine medications. In addition to her routine home medications, she is to have guaifenesin, albuterol and Xanax. On followup with her primary care physician, she is to have routine lab and chest x-ray for followup. She is to return to the hospital or followup with Dr. Cr for any problems or complications. DISCHARGE MEDICATIONS: 1. Aspirin. 2. Mirapex. 3. Potassium chloride. 4. Omeprazole. 5. Metoprolol. 6. Losartan. 7. Plaquenil. 8. Furosemide. 9. Uloric. 10. Amitriptyline. 11. Amlodipine. 12. Fentanyl. 13. Guaifenesin. 14. Albuterol. 15. Xanax. #[id number] [facility]
== END 2020-03-28 15:00 | DRG 177 ==
LOC: ER 10:47 → MS 16:28 → OBSVTOIN 16:28
PROVIDERS: ADMIT Nurse Practitioner; ATTEND Nurse Practitioner Acute Care
PROC: XW033E5 Introduction of Remdesivir Anti-infective into Peripheral Vein, Percutaneous Approach, New Technology Group 5 (ICD-10-PCS; principal; 2020-03-09)
PROC: 5A0955A Assistance with Respiratory Ventilation, Greater than 96 Consecutive Hours, High Flow/Velocity Cannula (ICD-10-PCS; 2020-03-15)
DX: U07.1 COVID-19 (principal); J12.89 Other viral pneumonia; N17.9 Acute kidney failure, unspecified; R09.02 Hypoxemia; E87.6 Hypokalemia; M06.9 Rheumatoid arthritis, unspecified; I10 Essential (primary) hypertension; G72.89 Other specified myopathies; F41.9 Anxiety disorder, unspecified; G89.29 Other chronic pain; M54.9 Dorsalgia, unspecified; Z88.2 Allergy status to sulfonamides; Z79.82 Long term (current) use of aspirin; Z79.899 Other long term (current) drug therapy

== ENCOUNTER 2020-03-30 03:03 | Inpatient (IN) | payer MEDICARE, OTHER ==
--- NOTE | 2020-03-30 03:19 | ED.PDOC ---
History of Present Illness - General Time Seen by Provider: 03/30/20 03:05 Source: RN notes reviewed, Vital Signs reviewed, EMS notes reviewed, EMS, alf records, old records Exam Limitations: clinical condition - History of Present Illness Initial Comments: 79 yo F comes from [facility] with AMS and hypoxia. Patient was admitted to the hospital for 19 days with covid and hypoxia. per EMS was on 4-5 L oxygen at alf. Patient became confused, and was noted to have oxygen 90% on 5 L. She was brought in to emergency department with AMS. GCS 11. Patient was discharged 2 days ago on 4 L NC Allergies/Adverse Reactions: Allergies Levofloxacin [From Levaquin] Allergy (Verified 03/09/20 20:48) Sulfa Antibiotics Allergy (Verified 03/09/20 11:15) Home Medications: Ambulatory Orders Amitriptyline HCl [Elavil] 75 mg PO DAILY 02/10/14 Aspirin [Baby Aspirin] 81 mg PO QD 02/10/14 Febuxostat [Uloric] 40 mg PO DAILY 02/10/14 Furosemide 40 mg PO DAILY 02/10/14 Hydroxychloroquine [Plaquenil] 200 mg PO BID 02/10/14 Losartan Potassium & Hydrochlo [Losartan Potassium/Hydroc 50-12.5 mg] 1 tab PO DAILY 02/10/14 Metoprolol Tartrate 25 mg PO BID 02/10/14 Omeprazole 20 mg PO DAILY 02/10/14 Potassium Chloride [Potassium Chloride ER] 10 meq PO BID 02/10/14 Pramipexole Dihydrochloride [Mirapex] 0.25 mg PO BEDTIME 02/10/14 amLODIPine BESYLATE [Norvasc] 5 mg PO DAILY 02/10/14 Fentanyl 25 mcg TOP Q72H 03/13/20 ALPRAZolam [Xanax] 0.25 mg PO Q6H PRN #20 tab 03/28/20 Albuterol Inhaler [Ventolin Hfa Inhaler] 2 puff INH RTQID inh 03/28/20 guaiFENesin ER TAB [Mucinex Tab] 600 mg PO BID tab 03/28/20 Review of Systems - Review of Systems Unable to Obtain Due To: condition - AMS Past Medical History (General) - Patient Medical History Hx Seizures: No Hx Stroke: No Hx Dementia: No Hx Asthma: No Hx of COPD: No Hx Cardiac Disorders: No Hx Congestive Heart Failure: No Hx Pacemaker: No Hx Hypertension: Yes Hx Diabetes: No Hx Gastroesophageal Reflux: No Hx Renal Disease: No Hx Cancer: No Hx of HIV: No Hx Hepatitis C: No Hx MRSA: No - Vaccination History Hx Influenza Vaccination: Yes Hx Pneumococcal Vaccination: Yes - Social History Hx Tobacco Use: No Hx Alcohol Use: No Hx Substance Use: No Hx Physical Abuse: No Hx Emotional Abuse: No Family Medical History - Family History Mother Family History: Unknown Living Status: Unknown Physical Exam - Physical Exam General Appearance: Alert, Unkempt, Well Developed, Well Nourished Eyes, Ears, Nose, Throat Exam: PERRL/EOMI, normal ENT inspection, TMs normal Neck: non-tender, full range of motion, supple, normal inspection Respiratory: chest non-tender, rales, other - tachypnea Cardiovascular/Chest: normal peripheral pulses, regular rate, rhythm, no gallop, no JVD, no murmur Peripheral Pulses: radial,right: 2+, radial,left: 2+ Gastrointestinal/Abdominal: normal bowel sounds, non tender, soft Rectal Exam: deferred Extremity: normal range of motion, non-tender, normal inspection, no calf tenderness Neurologic: no motor/sensory deficits, alert, disoriented x 3 Skin Exam: normal color, warm/dry Lymphatic: no adenopathy Progress - Progress Progress: 03/30/20 03:52 CrCl 20.8 79 yo F with a pmh of HTN and RA comes in with acute confusion and hypoxia. Patient was discharged 2 days ago after 19 days in the hospital with COVID pneumonia. She was discharged on 3 L NC. When EMS arrived at the alf she was saturating 86% on 3L. She was awake and alert, but only making incomprehensible sounds. When she got her she was saturating 93% on 15L non rebreather. She oriented x 0. CXR shows bilateral patchy pneumonia. EKG showed incomplete RBBB, but no acute ischemic changes. Her blood work showed a Cr 2.90 bun 86, baseline 1.02 BU 40s. I feel this is prerenal. will give IVF. Troponin was 0.09 (cut off is 0.05). this could be demand ischemia or secondary to renal failure. lactic acid was normal. CT head was negative for acute pathology. ABG shows pH 7.41, PC02 43.3 and PO2 113, this was on the nonrebreather. BE 2.9. We currently have her 95% on 5 L NC. We held off on remdisivir due to her kidney function. Dont currently have bamlanivimab, given cefepime 2 gram q 24 hr. Discussed with who states patient is a full code. The data reviewed when caring for this patient included: nurse notes, prior records, etc. The history and assessments from nurses notes were reviewed and considered, and the patient's home medication list was also reviewed and considered. My assessment and the results of testing completed here in the ED were discussed with the patient/family. Chasity Fernando DO #[id number] 03/30/20 05:40 - EKG/XRAY/CT EKG: Sinus - HR 84 Comments: LAD, incomplete RBBB, no acute ischemia. XRAY: chest - bilateral patchy infiltrates CT: head: no acute IC pathology Departure - Departure Clinical Impression: Hypoxemia, COVID-19, Elevated troponin level Acute renal failure Qualifiers: Acute renal failure type: unspecified Qualified Code(s): N17.9 - Acute kidney failure, unspecified Referrals: LYNNE GREEN MD [Primary Care Provider] - 1-2 Weeks Home Medications: Ambulatory Orders Amitriptyline HCl [Elavil] 75 mg PO DAILY 02/10/14 Aspirin [Baby Aspirin] 81 mg PO QD 02/10/14 Febuxostat [Uloric] 40 mg PO DAILY 02/10/14 Furosemide 40 mg PO DAILY 02/10/14 Hydroxychloroquine [Plaquenil] 200 mg PO BID 02/10/14 Losartan Potassium & Hydrochlo [Losartan Potassium/Hydroc 50-12.5 mg] 1 tab PO DAILY 02/10/14 Metoprolol Tartrate 25 mg PO BID 02/10/14 Omeprazole 20 mg PO DAILY 02/10/14 Potassium Chloride [Potassium Chloride ER] 10 meq PO BID 02/10/14 Pramipexole Dihydrochloride [Mirapex] 0.25 mg PO BEDTIME 02/10/14 amLODIPine BESYLATE [Norvasc] 5 mg PO DAILY 02/10/14 Fentanyl 25 mcg TOP Q72H 03/13/20 ALPRAZolam [Xanax] 0.25 mg PO Q6H PRN #20 tab 03/28/20 Albuterol Inhaler [Ventolin Hfa Inhaler] 2 puff INH RTQID inh 03/28/20 guaiFENesin ER TAB [Mucinex Tab] 600 mg PO BID tab 03/28/20 Decision To Admit - Decistion To Admit Decision to Admit Reason: Medical Nature Decision to Admit Date: 03/30/20 Decision to Admit Time: 03:28
[2020-03-30] MEDS ORDERED: SODIUM CHLORIDE 0.9% 500ML 500 ML IVS ONE (03:34)
[2020-03-30] MEDS ORDERED: ASPIRIN (CHEWABLE) 81 MG TAB PO ONE (03:50)
[2020-03-30] MEDS ORDERED: CEFEPIME 2 GM in SODIUM CHL 0.9% 100ML MINI-BAG 100 ML IVPB ONE (03:52)
[2020-03-30] MEDS ORDERED: DEXAMETHASONE INJ 10 MG/ML VIAL IV ONE (04:11)
[2020-03-30] MEDS ORDERED: SODIUM CHLORIDE 0.9% 1000ML 1,000 ML IVS ONE (04:21)
--- NOTE | 2020-03-30 04:25 | CT ---
EXAM DESCRIPTION: CT of the head without contrast CLINICAL HISTORY: confusion COMPARISON: 10/02/2016 TECHNIQUE: Axial CT of the head obtained from the skull apex to the skull base without contrast. FINDINGS: No acute intracranial hemorrhage identified. No mass, mass effect, shift of the midline, abnormal extra-axial fluid collection or CT evidence of acute ischemic change identified. The ventricular system and sulcal spaces are age appropriate. Scattered areas of hypodensity throughout the supratentorial white matter are nonspecific and may be related to chronic small vessel ischemic change. Minimal mucosal thickening of the paranasal sinuses. Mastoid air cells are well aerated. No skull fracture identified. Visualized orbits and globes are unremarkable. Atherosclerotic calcification of the intracranial internal carotid arteries. IMPRESSION: 1. No acute intracranial abnormality by CT criteria. This exam was performed according to our departmental dose-optimization program, which includes automated exposure control, adjustment of the mA and/or kV according to patient size and/or use of iterative reconstruction technique. Electronically signed by: Sebastián Sifuentes 03/30/2020 4:24 AM [facility]
--- NOTE | 2020-03-30 04:28 | RAD ---
EXAM DESCRIPTION: Chest,1 View CLINICAL HISTORY: hypoxia COMPARISON: 03/28/2020 FINDINGS: Single frontal radiograph view of the chest. Cardiomediastinal silhouette: Stable. Leads overlie the chest. Lungs: Stable diffuse bilateral interstitial and airspace opacities. No pneumothorax or large effusion. Bones: Stable. Upper abdomen: Stable. IMPRESSION: 1. Stable diffuse bilateral interstitial and airspace opacity. Electronically signed by: Sebastián Sifuentes 03/30/2020 4:26 AM [facility]
[2020-03-30] MEDS ORDERED: HEPARIN SODIUM (PORCINE) 5,000 U/ML VIAL IV ONE (05:11)
[2020-03-30] MEDS ORDERED: HEPARIN PREMIX 25,000 UNITS in PREMIX BAG 1 BAG IVS SCH (05:15)
[2020-03-30] MEDS ORDERED: SOD POLYSTYRENE SULFONATE 15 GM/60 ML BTTL PO ONE (06:59)
--- NOTE | 2020-03-30 08:22 | HP ---
SUPERVISING PHYSICIAN: STEPHEN ZAMUDIO MD CHIEF COMPLAINT: Acute mental status change. HISTORY OF PRESENT ILLNESS: Ms. Zamudio is a 79-year-old female patient who was just transferred to [facility] on the after being in the hospital at [facility] since 03/17 for treatment of Covid pneumonitis and pneumonia. She was discharged in good stable condition, however, in the last few days apparently has become severely altered in her mental status and some reported hypoxia. She was discharged on oxygen 4 liters nasal cannula and initially discharged on 03/28/20. She was supposedly in the Emergency Room at the [facility] oxygen saturation 90% on 5 liters. Her laboratory studies on admission showed she had a Workman's Compensation of 12,400 with a left shift compared to discharge white count of 9,500. Her coagulation studies showed she had a normal D-dimer. Chemistries showed her creatinine was 2.90 compared to 1.79 on 03/28 discharge as well as her osmolality was 296, BUN 86, potassium 5.7, magnesium 2.8. She did have an elevated troponin 0.09 but repeat 6 hours later was 0.09. Urinalysis did show a small amount of leukoesterase. Microscopic revealed 3 to 5 WBC, 1 to 3 RBC with rare bacteria on catheterized specimen. Blood gas analysis on 4 liter nasal cannula showed her PO2 was 113, oxygen saturation 98% on peep of 7.4, PC02 of 43. Bicarb 28. Base excess 2.8. Blood cultures, urine cultures, were completed as well as a respiratory panel with good show negative for all viral and bacterial targets including influenza A and B and Covid. Her vital signs in the Emergency Room initially on admission showed she was afebrile with temperature 97.4, pulse 81, blood pressure 139/75. Apparently, she came in on a nonrebreather, oxygen saturation 94%, after replacement nasal cannula at 4 liters oxygen saturation was 98%. Review of her records does show she is in Lasix as well as p.r.n. Xanax and potassium. Given her change in labs and her acute mental status change and her clinical presentation, it looks like she is extremely dehydrated with a pulse of 109, urinary tract infection, she is going to be placed in observation overnight for some hydration therapy and reevaluation in the morning. Due to acute mental status change, patient's history is obtained previous history and physical as the patient is not able to provide any significant medical history at time of admission. She is placed in observation in stable condition. PAST MEDICAL HISTORY: 1. Hypertension. 2. Rheumatoid arthritis. 3. Chronic back pain. 4. Recent treatment for Covid pneumonitis 03-09 to 03-28-20. MEDICATIONS: 1. Guaifenesin, 600 mg b.i.d. 2. Amlodipine 5 mg daily. 3. Mirapex 0.25 mg at bedtime. 4. Potassium chloride 10 mEq b.i.d. 5. Omeprazole 20 mg daily. 6. Metoprolol 25 mg b.i.d. 7. Losartan and Hydrochlorothiazide 15-12/5 mg, one tablet daily. 8. Plaquenil 200 mg b.i.d. 9. Lasix 40 mg daily. 10. Fentanyl 25 mcg TOP q72 hours. 11. Uloric 40 mg daily. 12. Aspirin 81 mg daily. 13. Elavil 75 mg daily. 14. Albuterol inhalers. 15. Xanax. PAST SURGICAL HISTORY: Not listed on previous history and physical. FAMILY HISTORY: No mention of any significant family history to current condition. SOCIAL HISTORY: Nondrinker, nonsmoker, no illicit drugs. She is a resident of [facility]. . REVIEW OF SYSTEMS: GENERAL: I haven't obtained due to acute mental status change PHYSICAL EXAMINATION: VITAL SIGNS: Temperature 97.4, pulse 81. Blood pressure 139/75, respiratory rate 22, oxygen saturation 94% on nonrebreather after being placed on a nasal cannula showing 97 to 98% saturation. GENERAL: The patient is sleep but she will awaken but only answers to herself. She is very unkept, looks very dehydration. HEENT: Tympanic membranes are clear bilaterally. Oropharynx is pink. Very dry mucous membranes. NECK: Supple, non-tender, full range of motion. No jugular venous distention/ CHEST: Lung sounds clear throughout, no obvious rhonchi, rales, or wheezes. CARDIOVASCULAR: Regular rate and rhythm without appreciable murmurs, rubs, or gallops. ABDOMEN: Soft. Non-tender, positive bowel sounds. RECTAL: Exam deferred. BACK: No CVA or vertebral tenderness. EXTREMITIES: No cyanosis, clubbing, or edema. NEUROLOGICAL: No obvious mitior or sensory deficits. She is alert. Cranial nerves II through XII appear to be grossly intact except that she is disoriented x2. She is alert to herself on admission. SKIN: Warm, pink and dry. LABORATORY: White count 12.400, hemoglobin 12, hematocrit 35.3, platelet count 251,000, differential does show a left shift but little change from discharge on 03/28. Coagulation studies showed normal D-dimer. Blood gas analysis on nasal cannula at 4 liters showed exacerbation of 98% with peep of 747. Bicarb 28, P02 of 113, PC02 of 43. Chemistries on admission sowed pH of 5.7 with sodium 134, blood sugar 129, creatinine 2.90 and that is compared to discharge of 1.79. Anion gap elevated at 18.7. Lactic acid normal at 1.3, calcium 9.8, phosphorus 3.8, magnesium 2.8. Liver functions were within normal limits. Troponin elevated at 0.09 times 2 specimens, unchanged at 0.09. C-reactive protein 5.8. TSH normal at .09. Urinalysis shows small amount of blood, small amount of leukoesterase with microscopic showing 1 to 3 RBC, 3 to 5 WBC, 1 to 3 epithelials and rare bacteria. MICROBIOLOGY: Blood cultures were obtained. Urine culture obtained. Respiratory ng for all bacterial and viral targets including Covid and influenza. RADIOLOGY: Chest x-ray stable diffuse bilateral interstitial airspace opacities compared to discharge on 03/28. CT of the head showed no acute intracranial abnormalities. EKG showed sinus rhythm, no ST or T-wave changes to indicate acute ischemia compared EKG on admission on 03/30/20 with a right bundle branch block noted on initial EKG on 03/09. IMPRESSION: 1. Acute mental status change 2. Acute renal injury, likely prerenal azotemia with severe dehydration with patient on 2 diuretics. 3. Possible urinary tract infection, cultures pending. 4. Elevated troponin with no mention of chest pain, no EKG changes and troponin showing to be stable, likely due to acute renal failure or acute kidney injury. 5. Recent treatment for Covid pneumonia and pneumonitis, 03/09 to 03/28/20, patient having been treated with Decadron and Remdesivir and full course of antibiotics. 6. History of rheumatoid arthritis. 7. Hypertension. 8. Chronic back pain on Fentanyl possibly contributing to #1 with p.r.n. Xanax. PLAN: Ms. Zamudio is going to placed in observation giving fluids judiciously as she was just recently treated for Covid pneumonia. We will also make sure her Fentanyl patch is removed. She was given initially in the Emergency Room as well as Cefepime. We will hold off on any additional antibiotics as she just competed a 10-day course of Cefepime and I believe azithromycin as well as Decadron and Remdesivir. She did test negative for Covid, therefore, we will not use any treatment for Covid infection. I believe she is significantly dehydration since discharge and will likely need some modification in her medications on discharge. I expect her admission to be probably 1 or 2 days. She will be on DVT prophylaxis per protocol. We will resume her home medications appropriate to care once those have been verified and updated. Until we can transition her to outpatient management, we will continue to monitor and treat as needed #[id number] MTDD
[2020-03-30] MEDS ORDERED: SODIUM CHLORIDE 0.9% (FLUSH) 10 ML SYG IV PRN (10:08)
[2020-03-30] MEDS ORDERED: ONDANSETRON INJ 4 MG/2 ML VIAL IV PRN (10:08)
[2020-03-30] MEDS ORDERED: ACETAMINOPHEN 325 MG TAB PO PRN (10:08)
[2020-03-30] MEDS ORDERED: IV SET AND CAP CHANGE INJ INJ SCH (10:30)
[2020-03-30] MEDS: SODIUM CHLORIDE 0.9% 1000ML 1,000 ML IVS PRN ×2 (10:50→23:33)
[2020-03-30] MEDS ORDERED: FENTANYL 25 MCG TOP SCH (18:45)
[2020-03-30] MEDS ORDERED: fentaNYL PATCH 25 MCG/HR 1 EA PATCH ONE (18:58)
[2020-03-30] MEDS ORDERED: METOPROLOL TARTRATE 25 MG TAB ONE (18:59)
[2020-03-30] MEDS: PRAMIPEXOLE 0.25 MG TAB PO SCH (20:37)
[2020-03-30] MEDS: guaiFENesin ER TAB 600 MG TAB PO SCH (20:37)
[2020-03-30] MEDS: METOPROLOL TARTRATE 50 MG TAB PO SCH (20:37)
[2020-03-30] MEDS: NON-FORMULARY MEDICATION 1 EA MIS (Hydroxychloroquine [Plaquenil] 200 MG) PO SCH (20:53)
[2020-03-31] MEDS ORDERED: AMITRIPTYLINE HCL 25 MG TAB ONE (07:30)
[2020-03-31] MEDS ORDERED: METOPROLOL TARTRATE 25 MG TAB ONE ×2 (07:31→19:11)
[2020-03-31] MEDS: METOPROLOL TARTRATE 50 MG TAB PO SCH ×2 (08:12→20:18)
[2020-03-31] MEDS: guaiFENesin ER TAB 600 MG TAB PO SCH ×2 (08:12→20:19)
[2020-03-31] MEDS: AMITRIPTYLINE HCL 75 MG PO SCH (08:12)
[2020-03-31] MEDS: NON-FORMULARY MEDICATION 1 EA MIS (Febuxostat [Uloric] 40 MG) PO SCH (08:13)
[2020-03-31] MEDS: NON-FORMULARY MEDICATION 1 EA MIS (Hydroxychloroquine [Plaquenil] 200 MG) PO SCH ×2 (08:13→20:21)
[2020-03-31] MEDS: amLODIPine BESYLATE 5 MG TAB PO SCH (08:13)
[2020-03-31] MEDS ORDERED: SODIUM CHL 0.9% 50ML MIN-BAG+ 50 ML IVPB ONE (08:20)
[2020-03-31] MEDS ORDERED: cefTRIAXone SODIUM 1 GM VIAL ONE (08:20)
[2020-03-31] MEDS: cefTRIAXone SODIUM 1 GM in SODIUM CHL 0.9% 50ML MIN-BAG+ 50 ML IVPB SCH (09:18)
[2020-03-31] MEDS: SODIUM CHLORIDE 0.9% 1000ML 1,000 ML IVS PRN (12:52)
[2020-03-31] MEDS: ALBUTEROL SULFATE 2.5 MG/3 ML VIAL NEB SCH ×2 (15:56→20:00)
[2020-03-31] MEDS ORDERED: guaiFENesin ER TAB 600 MG TAB ONE (19:10)
[2020-03-31] MEDS ORDERED: PRAMIPEXOLE 0.25 MG TAB ONE (19:11)
[2020-03-31] MEDS: PRAMIPEXOLE 0.25 MG TAB PO SCH (20:19)
[2020-04-01] MEDS: SODIUM CHLORIDE 0.9% 1000ML 1,000 ML IVS PRN (01:24)
[2020-04-01] MEDS ORDERED: ALBUTEROL SULFATE 2.5 MG/3 ML VIAL NEB ONE ×6 (06:23→18:15)
[2020-04-01] MEDS: ALBUTEROL SULFATE 2.5 MG/3 ML VIAL NEB PRN ×2 (06:30→17:25)
[2020-04-01] MEDS ORDERED: AMITRIPTYLINE HCL 25 MG TAB PO ONE (07:55)
[2020-04-01] MEDS ORDERED: amLODIPine BESYLATE 5 MG TAB ONE (07:56)
[2020-04-01] MEDS ORDERED: AMITRIPTYLINE HCL 25 MG TAB ONE (07:56)
[2020-04-01] MEDS ORDERED: guaiFENesin ER TAB 600 MG TAB ONE ×2 (07:57→19:45)
[2020-04-01] MEDS ORDERED: cefTRIAXone SODIUM 1 GM VIAL ONE (07:57)
[2020-04-01] MEDS ORDERED: SODIUM CHL 0.9% 50ML MIN-BAG+ 50 ML IVPB ONE (07:57)
--- NOTE | 2020-04-01 08:31 | PN ---
SUPERVISING PHYSICIAN: Alonzo Warner MD DATE: 03/31/20 SUBJECTIVE: The patient is much more alert today and actually has a conversation. She seems to be closer to her baseline level of mental status as when she discharged. She has no further complaints. She is able to maintain her 02 saturations on nasal cannula with no distress. The patient has not had any complaints of chest pain. OBJECTIVE: VITAL SIGNS: Temperature 97.5, pulse 69, blood pressure 127/73, respirations 18, oxygen saturation 97% on 5 liter high flow nasal cannula. GENERAL: The patient is much more alert today. Seems to be in no distress. HEENT: Oropharynx is much more moist with no obvious dry mucous membranes. CHEST: Lung sounds just remains diminished, there is a little of a rhonchi I heard on the right lateral aspect compared to the left, no wheezing. HEART: Regular rate and rhythm. ABDOMEN: Soft, n tenderness, positive bowel sounds. EXTREMITIES: Without edema. NEUROLOGIC: She is alert and oriented x3. LABORATORY: White count had gone up a little bit to 13,300, hemoglobin 9.6, hematocrit 20.5, platelet count 200,000. Differential does show a left shift. Chemistries show normal electrolytes, creatinine down to 1.6 compared to 2.59 on admission. Troponin down to 0.06. MICROBIOLOGY: Urine culture both preliminary with blood cultures showing any growth at 24 hours. RADIOLOGY: No additional radiographic studies today. IMPRESSION: 1. Acute mental status change with patient returning to baseline levels likely secondary to underlying dehydration with mild exacerbation and possible urinary tract infection. 2. Acute renal injury, likely prerenal azotemia with severe dehydration with patient on 2 diuretics. 3. Possible urinary tract infection, cultures pending. 4. Elevated troponin with no reported chest pain, EKG remains unchanged and troponin showing to be trending to baseline levels. Probably elevated due to acute renal failure. 5. Recent treatment for Covid pneumonia and pneumonitis, 03/09 to 03/28/20, patient having been treated with Decadron and Remdesivir and full course of antibiotics. 6. History of rheumatoid arthritis. 7. Hypertension. 8. Chronic back pain on Fentanyl possibly contributing to #1 with p.r.n. Xanax. PLAN: Will continue with fluids today and as she is deconditioned will go ahead and leave the Mtz in. I have also requested a physical therapy evaluation given her degree of deconditioning. She will remain on antibiotics at this point with Rocephin. Will await final culture results as she is showing some slight improvement, although her white count did go up. At this point, I don't see any reason to escalate her antibiotic coverage but certainly will monitor closely clinically. Hopefully, we will be able to transition her back to [facility] within the next 24-48 hours. Until then, we will continue to monitor and treat as needed. #[id number] [facility]
[2020-04-01] MEDS: cefTRIAXone SODIUM 1 GM in SODIUM CHL 0.9% 50ML MIN-BAG+ 50 ML IVPB SCH (08:34)
[2020-04-01] MEDS: NON-FORMULARY MEDICATION 1 EA MIS (Hydroxychloroquine [Plaquenil] 200 MG) PO SCH ×2 (08:34→19:58)
[2020-04-01] MEDS: NON-FORMULARY MEDICATION 1 EA MIS (Febuxostat [Uloric] 40 MG) PO SCH (08:34)
[2020-04-01] MEDS: AMITRIPTYLINE HCL 75 MG PO SCH (08:35)
[2020-04-01] MEDS: guaiFENesin ER TAB 600 MG TAB PO SCH ×2 (08:35→19:51)
[2020-04-01] MEDS: SODIUM CHLORIDE 0.9% (FLUSH) 10 ML SYG IV SCH ×2 (08:35→19:57)
[2020-04-01] MEDS: amLODIPine BESYLATE 5 MG TAB PO SCH (08:35)
[2020-04-01] MEDS ORDERED: METOPROLOL TARTRATE 25 MG TAB ONE ×2 (08:55→19:46)
[2020-04-01] MEDS: METOPROLOL TARTRATE 50 MG TAB PO SCH ×2 (08:57→19:52)
[2020-04-01] MEDS: ALBUTEROL SULFATE 2.5 MG/3 ML VIAL NEB SCH ×3 (09:20→15:59)
[2020-04-01] MEDS ORDERED: MORPHINE SULFATE INJ 10 MG/ML VIAL IV ONE (18:46)
[2020-04-01] MEDS ORDERED: FUROSEMIDE INJ 40 MG/4 ML VIAL IV ONE (19:30)
[2020-04-01] MEDS ORDERED: PRAMIPEXOLE 0.25 MG TAB ONE (19:46)
[2020-04-01] MEDS: PRAMIPEXOLE 0.25 MG TAB PO SCH (19:51)
--- NOTE | 2020-04-01 19:52 | RAD ---
EXAM DESCRIPTION: Chest,1 View CLINICAL HISTORY:79 years Female, post covid PNA Comparison: Chest radiograph dated March 30, 2020 FINDINGS: Limited evaluation due to patient's rotation. Worsening bilateral interstitial opacities Small right pleural effusion No pneumothorax. Cardiomediastinal silhouette is unchanged. No acute osseous abnormality. Diffuse osteopenia. IMPRESSION: Worsening interstitial opacities concerning for pneumonia and/or chronic lung changes. Small right pleural effusion. Electronically signed by: Gabriele Asher DO 04/01/2020 7:50 PM ENVIRONMENTAL SYSTEMS COORDINATOR
[2020-04-01] MEDS ORDERED: AZITHROMYCIN IV 500 MG in SODIUM CHLORIDE 0.9% 250ML 250 ML IVPB SCH (20:00)
[2020-04-01] MEDS: IPRATROPIUM/ALBUTEROL 3 ML VIAL NEB SCH (20:30)
[2020-04-01] MEDS: BUDESONIDE NEBS 0.5 MG/2 ML INH NEB SCH (20:30)
[2020-04-01] MEDS ORDERED: SODIUM CHLORIDE 0.9% 250ML 250 ML ONE (20:31)
[2020-04-01] MEDS ORDERED: AZITHROMYCIN IV 500 MG VIAL IVPB ONE (20:31)
[2020-04-01] MEDS ORDERED: ENOXAPARIN SODIUM 40 MG/0.4 ML SYG SUBCU SCH (21:00)
--- NOTE | 2020-04-02 06:11 | RAD ---
EXAM DESCRIPTION: Chest,1 View CLINICAL HISTORY: post covid PNA COMPARISON: 04/01/2020 FINDINGS: Single frontal view of the chest. Tubes and lines: Leads overlie the chest. Cardiomediastinal silhouette: Stable Lungs: Mild interval increase in diffuse bilateral interstitial and airspace opacities in the comparison study. No pneumothorax. Possible small right pleural effusion. Postoperative change of the right chest. Bones: Stable. Upper abdomen: Stable. IMPRESSION: 1. Mild interval increase in diffuse bilateral interstitial and airspace opacities. Electronically signed by: Sebastián Sifuentes 04/02/2020 6:09 AM VETERANS SERVICES SPECIALIST
[2020-04-02] MEDS ORDERED: AMITRIPTYLINE HCL 25 MG TAB ONE (07:06)
[2020-04-02] MEDS ORDERED: amLODIPine BESYLATE 5 MG TAB ONE (07:06)
[2020-04-02] MEDS ORDERED: guaiFENesin ER TAB 600 MG TAB ONE (07:06)
[2020-04-02] MEDS ORDERED: METOPROLOL TARTRATE 25 MG TAB ONE (07:06)
[2020-04-02] MEDS ORDERED: SODIUM CHL 0.9% 50ML MIN-BAG+ 50 ML IVPB ONE (07:07)
[2020-04-02] MEDS ORDERED: cefTRIAXone SODIUM 1 GM VIAL ONE (07:07)
[2020-04-02] MEDS: BUDESONIDE NEBS 0.5 MG/2 ML INH NEB SCH (08:10)
[2020-04-02] MEDS: IPRATROPIUM/ALBUTEROL 3 ML VIAL NEB SCH (08:10)
[2020-04-02] MEDS: cefTRIAXone SODIUM 1 GM in SODIUM CHL 0.9% 50ML MIN-BAG+ 50 ML IVPB SCH (08:21)
--- NOTE | 2020-04-02 08:25 | PN ---
SUPERVISING PHYSICIAN: Alonzo Warner MD CRITICAL CARE DATE: 04/01/20 SUBJECTIVE: The patient was doing fairly well today. She got up a couple of times to the bedside with the nurses, but she acutely decompensated and started desaturating fairly quickly, actually into the low 70s and required increase in oxygen demand up to 15 liter nasal cannula, ultimately having to go to BiPAP. She became quite tachypneic, but responded well to BiPAP. OBJECTIVE: VITAL SIGNS: Temperature 98.2, pulse 87, blood pressure 117/65, respirations 26, oxygen saturation at 71% on nasal cannula and initially up to 86% on BiPAP high flow and then increasing up to 92%. GENERAL: The patient looks to be in mild respiratory distress acutely, but after placing on BiPAP and giving some morphine, the patient was resting comfortably. She was alert. CHEST: Lung sounds actually sounded fairly clear, just a little diminished bilaterally. There is faint rhonchi heard on the lateral aspect of the right middle lobe, but no obvious wheezing. HEART: Regular rate and rhythm with no notable murmurs, gallops, or rubs. ABDOMEN: Soft, nontender, positive bowel sounds. EXTREMITIES: Without edema. NEUROLOGIC: She is alert and oriented x3. LABORATORY: White count has gone up to 12,800, hemoglobin stable at 10.2, hematocrit 30.2, platelet count 224,000. Differential does show a left shift. Coagulation studies showed D-dimer on admission was actually normal. Blood gas analysis today showed pH 7.4, pCO2 40, pO2 53, saturation 87%. That was on 15 liters nasal cannula at high flow. Chemistries show normal electrolytes. Creatinine 1.3. Calcium 9.0. Troponin 0.06, which is stable from previous day, which is down from admission of 0.09. BNP is elevated at 301. MICROBIOLOGY: Urine culture final shows insignificant colony count of mixed spencer. Blood cultures remain negative at 48 hours. RADIOLOGY: Chest x-ray shows worsening interstitial opacities concerning for pneumonia and/or chronic lung changes with small right pleural effusion. IMPRESSION: 1. Acute hypoxemic respiratory failure. 2. Post COVID-19 pneumonitis with developing worsening pneumonia. 3. Acute mental status change on admission, likely due to #1, resolved. 4. Questionable urinary tract infection with cultures showing mixed colony count. 5. Acute renal failure, likely due to prerenal azotemia with severe dehydration having been on two diuretics, showing improvement with fluids. 6. Bumped troponin with no mention of chest pain, no EKG changes, probably due to acute renal failure exacerbated by acute hypoxemia. 7. Recent treatment for COVID pneumonia/pneumonitis, 03/09/20 to 03/28/20. 8. Severe deconditioning secondary to extensive hospitalization for COVID pneumonitis/pneumonia. 9. History of rheumatoid arthritis. 10. Hypertension. 11. Chronic back pain on chronic pain management with fentanyl. PLAN: Given the patient's acute decompensation and acute respiratory failure, we will change her to a full admission as well as due to decompensation and acute respiratory failure, we started her on noninvasive ventilation. I have talked to the patient at length and she is a full code and wishes to remain so, but at this point she is tolerating BiPAP. We have adjusted the settings to the patient's oxygenation comfort levels and she seems to be doing well. On review of her medications, we will add to her antibiotic coverage with azithromycin as well as change her breathing treatments from albuterol to DuoNeb as well as add Pulmicort. I will hold off on any additional IV steroids at this point. She is on Lovenox. Her D-dimer was normal on admission, so we will continue therapeutic dosing at this point. I think she may have gotten a little fluffy from hydration, which was slow over the last 24 to 48 hours, but this may have resulted in some of her decompensation acutely given that she did have a slight bump in her BNP. Therefore, we will give her a dose of Lasix today. She does have a Mtz catheter in place due to the fact that she gets extremely short of breath with any exertion. Again, we have escalated her antibiotics to full coverage. Hopefully, with the additional Lasix and additional antibiotics and BiPAP she can show some improvement. In fact, shortly after placing BiPAP, she was greatly improved. Given that she did have a bump in her BNP and no history of congestive heart failure, I am going to get an echocardiogram in the morning to further assess her cardiac status. Her troponin has been stable. I think this is not a result of non-STEMI other than just a bump from her acute renal failure which is now resolving thanks to some low fluids. We will continue to followup her labs and work to titrate her down again back to high flow nasal cannula and nasal cannula as possible. She certainly has demonstrated easy decompensation. I think it may be beneficial to either get her to an LTAC, I do not know that she is going to be stable enough to go to a intermediate anytime given the multiple times that she has desaturated with minimal effort. Until the patient can transition to outpatient management, we will continue to monitor and treat as needed. CRITICAL CARE TIME spent on this patient for evaluation, treatment and coordination of care with nurse, respiratory staff, chart review, time recorder as well as documentation is 45 minutes. #[id number] [facility]
[2020-04-02] MEDS ORDERED: ASPIRIN (CHEWABLE) 81 MG TAB PO SCH (09:00)
[2020-04-02] MEDS ORDERED: AMITRIPTYLINE HCL 25 MG TAB PO SCH (09:15)
[2020-04-02 09:37] VITALS: BP 139/75; TEMP 98.5; O2SAT 92
[2020-04-02] MEDS: METOPROLOL TARTRATE 50 MG TAB PO SCH (10:21)
[2020-04-02] MEDS: NON-FORMULARY MEDICATION 1 EA MIS (Febuxostat [Uloric] 40 MG) PO SCH (10:21)
[2020-04-02] MEDS: NON-FORMULARY MEDICATION 1 EA MIS (Hydroxychloroquine [Plaquenil] 200 MG) PO SCH (10:21)
[2020-04-02] MEDS: guaiFENesin ER TAB 600 MG TAB PO SCH (10:22)
[2020-04-02] MEDS: AMITRIPTYLINE HCL 75 MG PO SCH (10:22)
[2020-04-02] MEDS: amLODIPine BESYLATE 5 MG TAB PO SCH (10:22)
[2020-04-02] MEDS: SODIUM CHLORIDE 0.9% (FLUSH) 10 ML SYG IV SCH (10:22)
[2020-04-02] MEDS ORDERED: MORPHINE SULFATE INJ 10 MG/ML VIAL IV ONE (10:46)
[2020-04-02] MEDS ORDERED: REMOVE OLD PATCH TOP SCH (21:00)
[2020-04-02] MEDS ORDERED: fentaNYL PATCH 25 MCG/HR 1 EA PATCH TOP SCH (21:00)
--- NOTE | 2020-04-03 09:07 | DS ---
SUPERVISING PHYSICIAN: Tj Ho MD ADMISSION DIAGNOSIS: 1. Acute mental status change 2. Acute renal injury, likely prerenal azotemia with severe dehydration with patient on 2 diuretics. 3. Possible urinary tract infection, cultures pending. 4. Elevated troponin with no mention of chest pain, no EKG changes and troponin showing to be stable, likely due to acute renal failure or acute kidney injury. 5. Recent treatment for COVID pneumonia and pneumonitis, 03/09 to 03/28/20, patient having been treated with Decadron and Remdesivir and full course of antibiotics. 6. History of rheumatoid arthritis. 7. Hypertension. 8. Chronic back pain on Fentanyl possibly contributing to #1 with p.r.n. Xanax. DISCHARGE DIAGNOSIS: 1. Acute hypoxemic respiratory failure. 2. Post COVID-19 pneumonitis with developing worsening pneumonia. 3. Acute mental status change on admission, likely due to #1, resolved. 4. Questionable urinary tract infection with cultures showing mixed colony count. 5. Acute renal failure, likely due to prerenal azotemia with severe dehydration having been on two diuretics, showing improvement with fluids. 6. Bumped troponin with no mention of chest pain, no EKG changes, probably due to acute renal failure exacerbated by acute hypoxemia. 7. Recent treatment for COVID pneumonia/pneumonitis, 03/09/20 to 03/28/20. 8. Severe deconditioning secondary to extensive hospitalization for COVID pneumonitis/pneumonia. 9. History of rheumatoid arthritis. 10. Hypertension. 11. Chronic back pain on chronic pain management with fentanyl. REASON FOR HOSPITALIZATION: Ms. Warner is a 79-year-old female patient who was just transferred to [facility] on the after being in the hospital at [facility] [place], [place] since 03/17 for treatment of COVID pneumonitis and pneumonia. She was discharged in good stable condition, however, in the last few days apparently has become severely altered in her mental status and some reported hypoxia. She was discharged on oxygen 4 liters nasal cannula and initially discharged on 03/28/20. She was supposedly in the Emergency Room at the longterm oxygen saturation 90% on 5 liters. Her laboratory studies on admission showed she had a Workman's Compensation of 12,400 with a left shift compared to discharge white count of 9,500. Her coagulation studies showed she had a normal D-dimer. Chemistries showed her creatinine was 2.90 compared to 1.79 on 03/28 discharge as well as her osmolality was 296, BUN 86, potassium 5.7, magnesium 2.8. She did have an elevated troponin 0.09 but repeat 6 hours later was 0.09. Urinalysis did show a small amount of leukocyte esterase. Microscopic revealed 3 to 5 WBC, 1 to 3 RBC with rare bacteria on catheterized specimen. Blood gas analysis on 4 liter nasal cannula showed her PO2 was 113, oxygen saturation 98% on peep of 7.4, PC02 of 43. Bicarb 28. Base excess 2.8. Blood cultures, urine cultures, were completed as well as a respiratory panel with good show negative for all viral and bacterial targets including influenza A and B and COVID. Her vital signs in the Emergency Room initially on admission showed she was afebrile with temperature 97.4, pulse 81, blood pressure 139/75. Apparently, she came in on a nonrebreather, oxygen saturation 94%, after replacement nasal cannula at 4 liters oxygen saturation was 98%. Review of her records does show she is in Lasix as well as p.r.n. Xanax and potassium. Given her change in labs and her acute mental status change and her clinical presentation, it looks like she is extremely dehydrated with a pulse of 109, urinary tract infection, she is going to be placed in observation overnight for some hydration therapy and reevaluation in the morning. Due to acute mental status change, patient's history is obtained previous history and physical as the patient is not able to provide any significant medical history at time of admission. She is placed in observation in stable condition. LABORATORY: White count on discharge/transfer was 9,800, hemoglobin 9.9, hematocrit 29.3, platelet count 186,000. Differential shows a left shift. Coagulation studies showed normal D-dimer. Blood gas analysis at time of transfer showed pH 7.46, pO2 62, pCO2 35, saturation 92% on 60% FIO2 on BiPAP. Chemistries showed normal electrolytes. Her troponin had bumped a little bit up to 0.08. Creatinine 1.28. Liver functions all within normal limits. BNP showed elevation at 301. Urinalysis was essentially unremarkable. MICROBIOLOGY: Final urine culture showed insignificant colony mixed spencer count. Blood cultures were negative after 3 days. Respiratory panel was negative for COVID, influenza and all other bacterial targets as tested. RADIOLOGY: Chest x-ray this morning prior to transfer showed mild interval increase in diffuse bilateral interstitial and airspace opacities. Echocardiogram was pending at time of transfer. HOSPITAL COURSE: Ms. Warner was admitted initially for altered mental status change secondary to dehydration with acute renal injury. She was initially given a liter of IV fluids and then continued for 24 hours for hydration and then saline locked. She was doing well until 04/01/20 and around 1800, she started developing some respiratory distress and was put on BiPAP. She tolerated BiPAP through the night, but was still showing a need for increasing oxygen demands on assessment on 04/02/20. Therefore, it was felt that the patient's clinical condition was slightly worsening and showing to be critical and in need of transfer to higher level of care for ICU monitoring with concerns for possible need for intubation. I did discuss with the patient her code status and she was to be a full code as well as at length with her . Therefore, arrangements were made to be transferred. Acceptance was received at [facility] and arrangements were made to be transferred by ground ambulance while on BiPAP. PLAN: Ms. Warner was transferred to [facility] in [place], [place], for hospitalist services and ICU due to acute respiratory distress and worsening respiratory effort with concerns for possible need to be on a ventilator and services not available at [facility] [place] [place]. The patient was transferred via ground ambulance utilizing BiPAP. Once discharged from [facility], she certainly will need to be followed up closely with her primary care physician, Dr. Cr. CONDITION ON DISCHARGE: Guarded and serious. #[id number] [facility]
== END 2020-04-02 12:56 | disposition short-term general hospital (02) | DRG 189 ==
LOC: ER 03:03 → OBSVTOIN 08:19 → MS 08:19
PROVIDERS: ADMIT Nurse Practitioner Family; ATTEND Nurse Practitioner Family
DX: J96.01 Acute respiratory failure with hypoxia (principal); J18.9 Pneumonia, unspecified organism; N17.9 Acute kidney failure, unspecified; N39.0 Urinary tract infection, site not specified; B94.8 Sequelae of other specified infectious and parasitic diseases; E86.0 Dehydration; R79.89 Other specified abnormal findings of blood chemistry; R53.81 Other malaise; M06.9 Rheumatoid arthritis, unspecified; I10 Essential (primary) hypertension; G89.29 Other chronic pain; M54.9 Dorsalgia, unspecified; Z79.891 Long term (current) use of opiate analgesic; Z79.82 Long term (current) use of aspirin; Z79.899 Other long term (current) drug therapy